=== PATIENT | female | born 1980 | race Caucasian/White ===

== ENCOUNTER 2017-09-01 20:13 | Emergency (ER) | payer OTHER ==
[2017-09-01 20:42] VITALS: BP 128/92
[2017-09-01] MEDS ORDERED: LIDOCAINE 5% (700 MG) TRANSDERMAL ADH..PATCH TP ONE (20:59)
[2017-09-01] MEDS ORDERED: KETOROLAC TROMETHAMINE INJ/PF 30 MG/1 ML SDV IM ONE (20:59)
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
== END 2017-09-01 21:21 | disposition home or self-care (01) ==
LOC: ER 20:13
DX: M62.830 Muscle spasm of back (principal); R51 Headache; V89.2XXA Person injured in unspecified motor-vehicle accident, traffic, initial encounter
CPT/HCPCS: 99283; 96372; J1885

== ENCOUNTER 2018-03-20 17:10 | Emergency (ER) | payer SELFPAY ==
--- NOTE | 2018-03-20 18:44 | RADIOLOGY REPORT (SQ) ---
EXAM DESCRIPTION: CHEST 2 VIEWS COMPLETED DATE/TIME: 03/20/2018 6:27 pm REASON FOR STUDY: chest wall pain COMPARISON: None. EXAM PARAMETERS: NUMBER OF VIEWS: two views TECHNIQUE: Digital Frontal and Lateral radiographic views of the chest acquired. RADIATION DOSE: NA LIMITATIONS: none FINDINGS: LUNGS AND PLEURA: No opacities, masses or pneumothorax. No pleural effusion. MEDIASTINUM AND HILAR STRUCTURES: No masses or contour abnormalities. HEART AND VASCULAR STRUCTURES: Heart normal size. No evidence for failure. BONES: No acute findings. HARDWARE: None in the chest. OTHER: No other significant finding. IMPRESSION: NO ACUTE RADIOGRAPHIC FINDING IN THE CHEST. TECHNICAL DOCUMENTATION: JOB ID: [id number] [employer]- All Rights Reserved Reading location - IP/workstation name: [email or web address]
--- NOTE | 2018-03-20 19:44 | ER Document Report ---
ED General - General Chief Complaint: Chest Pain Stated Complaint: CHEST PAIN Time Seen by Provider: 03/20/18 18:02 TRAVEL OUTSIDE OF THE [place] IN LAST 30 DAYS: No - HPI Patient complains to provider of: Chest wall sensitivity Notes: Patient coming in with chest wall pain states diffuse chest wall pain left and right very sensitive to light touch and clothing ongoing for approximately 2-3 days. Patient denies shortness of breath fevers chills nausea vomiting diarrhea. Patient states she did have chickenpox when she was younger patient states pain is achy but very hypersensitive patient states currently wearing her shirt and her bra is increasing her pain. Patient is unaware of any rashes that have developed on her torso. Patient otherwise denies any other concerning medical issues - Related Data Allergies/Adverse Reactions: No Known Allergies Allergy (Verified 03/20/18 17:57) Past Medical History - Social History Smoking Status: Current Every Day Smoker Chew tobacco use (# tins/day): No Frequency of alcohol use: Occasional Family History: Reviewed & Not Pertinent Patient has suicidal ideation: No Patient has homicidal ideation: No Renal/ Medical History: Denies: Hx Peritoneal Dialysis Past Surgical History: Reports: Hx Section - x 4, Hx Orthopedic Surgery - ankle Review of Systems - Review of Systems Constitutional: No symptoms reported EENT: No symptoms reported Cardiovascular: Chest pain Respiratory: No symptoms reported Gastrointestinal: No symptoms reported Genitourinary: No symptoms reported Female Genitourinary: No symptoms reported Musculoskeletal: No symptoms reported Skin: No symptoms reported Hematologic/Lymphatic: No symptoms reported Neurological/Psychological: No symptoms reported -: Yes All other systems reviewed and negative Physical Exam - Vital signs Vitals: Temp Pulse Resp BP Pulse Ox 98.9 F 68 16 130/86 H 98 03/20/18 17:31 03/20/18 17:31 03/20/18 17:31 03/20/18 17:31 03/20/18 17:31 Interpretation: Normal - General General appearance: Appears well, Alert - HEENT Head: Normocephalic, Atraumatic Eyes: Normal Pupils: PERRL - Respiratory Respiratory status: No respiratory distress Chest status: Tender - Tenderness to the chest wall anterior posterior left and right reproduces patient's pain examination of the posterior chest wall on back right side does reveal some development of more severe rash is erythematous at this painful to touch to the site there is no signs of vesicular lesions the rash is blanchable sandpaper feeling to touch Breath sounds: Normal Chest palpation: Normal - Cardiovascular Rhythm: Regular Heart sounds: Normal auscultation Murmur: No - Abdominal Inspection: Normal Distension: No distension Bowel sounds: Normal Tenderness: Nontender Organomegaly: No organomegaly - Back Back: Normal, Nontender - Extremities General upper extremity: Normal inspection, Nontender, Normal color, Normal ROM , Normal temperature General lower extremity: Normal inspection, Nontender, Normal color, Normal ROM , Normal temperature, Normal weight bearing. No: Ruth's sign - Neurological Neuro grossly intact: Yes Cognition: Normal Orientation: AAOx4 [place] Coma Scale Eye Opening: Spontaneous [place] Coma Scale Verbal: Oriented [place] Coma Scale Motor: Obeys Commands [place] Coma Scale Total: 15 Speech: Normal Motor strength normal: LUE, RUE, LLE, RLE Sensory: Normal - Psychological Associated symptoms: Normal affect, Normal mood - Skin Skin Temperature: Warm Skin Moisture: Dry Skin Color: Normal Course - Re-evaluation Re-evalutation: 03/20/18 20:52 Examination does not reveal vesicular rash diagnostic of shingles however because of the patient's pain distribution and concern for this will give the patient watch and wait prescription for acyclovir and prednisone. Patient also could be experiencing muscle skeletal chest wall pain. EKG chest x-ray did not reveal any significant pathology noted the patient's physical examination revealing significant pathology for her pain. Reviewed at length both of these etiologies recommend Tylenol Motrin currently for underlying muscle skeletal watch and wait prescription for prednisone and acyclovir. Patient is understanding will be discharged home. - Vital Signs Vital signs: Temp Pulse Resp BP Pulse Ox 98.9 F 68 16 130/86 H 98 03/20/18 17:31 03/20/18 17:31 03/20/18 17:31 03/20/18 17:31 03/20/18 17:31 Discharge - Discharge Clinical Impression: Chest wall pain Condition: Good Instructions: Chest Wall Pain ([facility]), Anti-Inflammatory Medication ([facility]), Shingles ([facility]), Family Physicians / Practices Additional Instructions: Your EKG today does not show any signs of cardiac ischemia cardiac damage. Your chest x-rays not showing signs of fracture or infection consistent with pneumonia. Your physical examination does reveal the chest wall is very tender he did have the development a little bit of a rash on the right side of your back. With your description of her pain would be concerned that she may be developing shingles. Diagnosed shingles based on the rash itself. At this time we do not have the diagnostic rash however this can develop over a amount of time. Please continue to monitor the area for the next 3-4 days for a blistering rash. If this does develop this is more likely shingles please take the acyclovir prednisone as prescribed. Other etiology for your pains could be muscle skeletal inflammation basically the cartilage and soft tissues within the chest wall or inflamed. We treat this with anti-inflammatory medication he may also take the Ultram for pain. Please return to the ER if you develop fever or worsening of symptoms Please take Motrin 600 mg along with Tylenol 650-1000 mg 3 times a day Please take the acyclovir if a rash develops that is blistering Please take the prednisone if a rash develops that is blistering Please take the Ultram as needed for severe pain Prescriptions: Acyclovir [Acyclovir 400 mg Tablet] 400 mg PO 5XD 7 Days tablet Ibuprofen [Motrin 600 Mg Tablet] 600 mg PO TID #30 tablet Prednisone [Deltasone 20 mg Tablet] 3 tab PO DAILY 5 Days tablet Tramadol HCl [Ultram 50 mg Tablet] 50 mg PO ASDIR PRN #20 tablet PRN Reason: Forms: Smoking Cessation Education, Return to Work
[2018-03-20 19:54] VITALS: BP 129/77
--- NOTE | 2018-03-20 21:12 | EKG REPORT ---
SEVERITY:- NORMAL ECG - SINUS RHYTHM : Confirmed by: Toby Mirza MD 20-Mar-2018 21:11:21
== END 2018-03-20 19:50 | disposition home or self-care (01) ==
LOC: ER 17:10
DX: R07.9 Chest pain, unspecified (principal); F17.200 Nicotine dependence, unspecified, uncomplicated
CPT/HCPCS: 71046; 93005; 93010; 99285

== ENCOUNTER 2018-05-08 13:47 | Emergency (ER) | payer SELFPAY ==
[2018-05-08 14:01] VITALS: BP 112/69
[2018-05-08] MEDS ORDERED: KETOROLAC TROMETHAMINE INJ/PF 30 MG/1 ML SDV IV ONE (14:16)
[2018-05-08] MEDS ORDERED: DEXAMETHASONE SOD PHOS INJ 10 MG/1 ML VIAL IM ONE (14:16)
[2018-05-08] MEDS ORDERED: LIDOCAINE 5% (700 MG) TRANSDERMAL ADH..PATCH TP ONE (14:17)
--- NOTE | 2018-05-08 14:21 | ER Document Report ---
ED Neck/Back Problem - General Chief Complaint: Low Back Pain Stated Complaint: BACK/LEG PAIN Time Seen by Provider: 05/08/18 14:06 Mode of Arrival: Ambulatory Information source: Patient Notes: 37-year-old female presents to low back pain radiating to both buttocks. She denies any loss of control of bowel bladder or loss of sensation. Patient is alert and oriented respirations regular and unlabored speaking in full sentences and is able to walk with a even steady gait. TRAVEL OUTSIDE OF THE [place] IN LAST 30 DAYS: No - HPI Patient complains to provider of: Lower back Onset: Last week Where: Work Onset: Gradual Timing: Still present Quality of pain: Achy, Dull, Sharp Severity: Severe Pain Level: 5 Context: Lifting Recent injury: Possibly Associated symptoms: Like prior neck/back pain, Radiation to leg, Sensory loss, Lower back pain Relieved by: Nothing Similar symptoms previously: Yes Recently seen / treated by doctor: No - Related Data Allergies/Adverse Reactions: No Known Allergies Allergy (Verified 05/08/18 13:54) Past Medical History - General Information source: Patient - Social History Smoking Status: Current Every Day Smoker Cigarette use (# per day): Yes - Half pack per day Smoking Education Provided: Yes - 4 minutes Frequency of alcohol use: Social Drug Abuse: None Lives with: Alone Family History: Reviewed & Not Pertinent Patient has suicidal ideation: No Patient has homicidal ideation: No - Past Medical History Cardiac Medical History: Reports: None Pulmonary Medical History: Reports: None EENT Medical History: Reports: None Neurological Medical History: Reports: None Endocrine Medical History: Reports: None Renal/ Medical History: Reports: None Malignancy Medical History: Reports: None GI Medical History: Reports: None Musculoskeletal Medical History: Reports Hx Musculoskeletal Deformity, Reports Hx Musculoskeletal Trauma Skin Medical History: Reports None Psychiatric Medical History: Reports: None Traumatic Medical History: Reports: None Infectious Medical History: Reports: None Past Surgical History: Reports: Hx Section - x 4, Hx Orthopedic Surgery - ankle - Immunizations Immunizations up to date: Yes Review of Systems - Review of Systems Constitutional: No symptoms reported EENT: No symptoms reported Cardiovascular: No symptoms reported Respiratory: No symptoms reported Gastrointestinal: No symptoms reported Genitourinary: No symptoms reported Female Genitourinary: No symptoms reported Musculoskeletal: Back pain - Radiates down the both legs, Muscle pain, Muscle stiffness Skin: No symptoms reported Hematologic/Lymphatic: No symptoms reported Neurological/Psychological: No symptoms reported. denies: Hallucinations, Sensory change, Weakness, Gait changes, Loss of power, Lost consciousness, Speech impairment, Numbness, Tingling, Tremor -: Yes All other systems reviewed and negative Physical Exam - Vital signs Vitals: Temp Pulse Resp BP Pulse Ox 97.7 F 60 16 112/69 100 05/08/18 13:59 05/08/18 13:59 05/08/18 13:59 05/08/18 13:59 05/08/18 13:59 Interpretation: Normal - General General appearance: Appears well, Alert - HEENT Head: Normocephalic, Atraumatic Eyes: Normal Pupils: PERRL - Respiratory Respiratory status: No respiratory distress Chest status: Nontender Breath sounds: Normal Chest palpation: Normal - Cardiovascular Rhythm: Regular Heart sounds: Normal auscultation Murmur: No - Abdominal Inspection: Normal Distension: No distension Bowel sounds: Normal Tenderness: Nontender Organomegaly: No organomegaly - Back Back: Normal, Tender. No: Deformity/step-off, CVA tenderness, Scars, Scoliosis , Wounds - Extremities General upper extremity: Normal inspection, Nontender, Normal color, Normal ROM , Normal temperature General lower extremity: Normal inspection, Nontender, Normal color, Normal ROM , Normal temperature, Normal weight bearing. No: Ruth's sign - Neurological Neuro grossly intact: Yes Cognition: Normal Orientation: AAOx4 [place] Coma Scale Eye Opening: Spontaneous [place] Coma Scale Verbal: Oriented [place] Coma Scale Motor: Obeys Commands [place] Coma Scale Total: 15 Speech: Normal Motor strength normal: LUE, RUE, LLE, RLE Sensory: Normal - Psychological Associated symptoms: Normal affect, Normal mood - Skin Skin Temperature: Warm Skin Moisture: Dry Skin Color: Normal Course - Re-evaluation Re-evalutation: 05/08/18 15:50 X-ray results discussed with patient and written report of x-rays given the patient. Next x-ray showed no acute changes. Patient has been treated with Toradol and steroids IM and Lidoderm patch. Patient will be discharged home with the prescription for ibuprofen and Flexeril instructions to follow-up with primary doctor and back specialist. After performing a Medical Screening Examination, I estimate there is LOW risk for EXPANDING OR RUPTURED ABDOMINAL AORTIC ANEURYSM, CAUDA EQUINA SYNDROME, EPIDURAL MASS LESION, or HERNIATED DISK CAUSING SEVERE SPINAL STENOSIS, thus I consider the discharge disposition reasonable. I have reevaluated this patient multiple times and no significant life threatening changes are noted. The patient and I have discussed the diagnosis and risks, and we agree with discharging home and close follow-up. We also discussed returning to the Emergency Department immediately if new or worsening symptoms occur with the understanding that symptoms and presentations can change. We have discussed the symptoms which are most concerning (e.g., saddle anesthesia, urinary or bowel incontinence or retention, changing or worsening pain) that necessitate immediate return. - Vital Signs Vital signs: Temp Pulse Resp BP Pulse Ox 97.7 F 60 16 112/69 100 05/08/18 13:59 05/08/18 13:59 05/08/18 13:59 05/08/18 13:59 05/08/18 13:59 - Diagnostic Test Radiology reviewed: Image reviewed, Reports reviewed Discharge - Discharge Clinical Impression: Low back pain Qualifiers: Chronicity: acute Back pain laterality: bilateral Sciatica presence: with sciatica Sciatica laterality: bilateral sciatica Qualified Code(s): M54.42 - Lumbago with sciatica, left side Condition: Stable Disposition: HOME, SELF-CARE Instructions: Family Physicians / Practices Additional Instructions: LOW BACK PAIN: Three out of every four people will have an episode of disabling back pain during their lifetime. Most commonly the pain is due to straining of the muscles and ligaments in the low back. Usual treatment includes: (1) Rest on a firm surface. Avoid lying on your stomach. (2) Ice pack the painful area. After a few days, gentle heat may be used intermittently to relax the area, or ice packs can be continued. (3) Medication may be needed -- muscle relaxers and antiinflammatory medicines are commonly used. (4) As the back improves, exercises are prescribed to strengthen the back and abdominal muscles. Your doctor will advise you on the proper care for your back at each stage in your recovery. You may be better in a few days -- or healing may take several weeks. If new symptoms of a "herniated disc" (radiation of pain, numbness, or tingling down the back of the leg or weakness in the leg) occur, you should be re-examined. Further testing may be necessary. Toradol Injection You have been given an injection of ketorolac tromethamine (Toradol). This is an excellent, safe drug for pain control. It also has potent antiinflammatory action. You should have significant pain relief within about one hour. Toradol is not addicting and is non-sedating. It does not interfere with driving or work. Call or return if you develop itching, hives, shortness of breath, or rash. STEROID MEDICATION: You have been given an injection of medicine of the cortisone/steroid class. This medication is used to control inflammation or allergy. It is often continued as a pill for a short period of time, until the acute process subsides. There are usually no side effects from short-term use of cortisone-like medications. Some persons feel an increased sense of well-being and are not sleepy at bedtime. Long-term use of cortisone medications is best avoided, unless required for a severe condition. If your condition does not remit, or relapses after the course of corticosteroid medication, you should consult your physician. Stretching Exercises for the Back The physician has recommended that you begin stretching exercises for your back. These are often used even while the back is painful. However, you should notify the physician if the activities seem to increase your pain. PELVIC TILT: Lie flat on your back with knees bent. Tighten your stomach and buttock muscles so it flattens your lower back against the floor. Hold 10 seconds. Repeat 10 times, twice daily. KNEE RAISE: Lying on the back with knees bent, raise one knee to your chest, then the other. Hold both knees against the chest 10 seconds, then lower one knee at a time. Repeat 10 times, twice daily. PARTIAL TRUNK RAISE: Lie face down, arms at your sides. Keeping your waist on the floor, use your arms raise your chest up. Support yourself on your elbows for 30 seconds. Repeat twice daily, increasing the time to two minutes as you recover. MUSCLE RELAXERS: Muscle relaxing medications are usually prescribed for acute muscle spasm or injury to the neck and back. They are often combined with antiinflammatory pain medication for increased relief. You may stop the muscle relaxer when the pain and stiffness have improved. Start the medication again if spasms recur. Muscle relaxers may cause drowsiness, especially with the first dose. Do not operate machinery or drive while under the effects of the medication. Most muscle relaxers last up to 24 hours. Do not combine the medication with alcohol. ICE PACKS: Apply ice packs frequently against the painful area. Many different schedules are recommended, such as "20 minutes on, 20 minutes off" or "one hour ice, two hours rest." If you need to work, you may need to go longer between ice treatments. You should plan to have the area ice packed AT LEAST one fourth of the time. The ice should be applied over the wrap, tape, or splint, or over a layer of cloth -- not directly against the skin. Some ice bags have a built-in cloth and can be put directly on the skin. WARM PACKS: After approximately two days, apply gentle heat (such as a heating pad or hot water bottle) for about 20 to 30 minutes about every two hours -- at least four times daily. Warmth and elevation will help you make a more rapid recovery , and will ease the pain considerably. Do not use HOT heat, and never apply heat for longer than 30 minutes. The continuous heat can invisibly damage skin and muscles -- even when no burn is seen on the surface. Damaged muscles can make you MORE sore. A Lidoderm patch was applied while in the emergency room. You can get over-the- counter Lidoderm patches that are not quite as strong as the one that you have one might now. You can use Aspercreme lidocaine it has the same affect. FOLLOW-UP CARE: If you have been referred to a physician for follow-up care, call the physician s office for an appointment as you were instructed or within the next two days. If you experience worsening or a significant change in your symptoms, notify the physician immediately or return to the Emergency Department at any time for re-evaluation. 1 [facility] [address] [facility] Open 8:00 AM - 8:00 PM 2 [facility] [address] [place] Open 9:00 AM - 5:00 PM Prescriptions: Ibuprofen 600 mg PO Q6HP PRN #20 tablet PRN Reason: Cyclobenzaprine HCl [Flexeril 5 mg Tablet] 5 mg PO TID #15 tablet Forms: Smoking Cessation Education, Return to Work
--- NOTE | 2018-05-08 15:43 | RADIOLOGY REPORT (SQ) ---
EXAM DESCRIPTION: L SPINE WHOLE COMPLETED DATE/TIME: 05/08/2018 3:32 pm REASON FOR STUDY: low back pain with radiation to bilateral buttocks COMPARISON: None. NUMBER OF VIEWS: Five views including obliques. TECHNIQUE: AP, lateral, oblique, and sacral radiographic images acquired of the lumbar spine. LIMITATIONS: None. FINDINGS: MINERALIZATION: Normal. SEGMENTATION: Normal. No transitional anatomy. ALIGNMENT: Normal. VERTEBRAE: Maintained height. No fracture or worrisome bone lesion. DISCS: Preserved height. No significant osteophytes or end plate irregularity. POSTERIOR ELEMENTS: Pedicles and facets are intact. No pars defect or posterior arch defects. HARDWARE: None in the spine. PARASPINAL SOFT TISSUES: Normal. PELVIS: Intact as visualized. No fractures or worrisome bone lesions. SI joints intact. OTHER: No other significant finding. IMPRESSION: NORMAL 5 VIEW LUMBAR SPINE. TECHNICAL DOCUMENTATION: JOB ID: [id number] [employer]- All Rights Reserved Reading location - IP/workstation name: [email or web address]
== END 2018-05-08 16:11 | disposition home or self-care (01) ==
LOC: ER 13:47
DX: M54.42 Lumbago with sciatica, left side (principal); F17.210 Nicotine dependence, cigarettes, uncomplicated
CPT/HCPCS: 99406; 99283; 96372; 96374; 72110; J1885; J1100

== ENCOUNTER 2018-06-07 13:50 | Emergency (ER) | payer SELFPAY ==
[2018-06-07 13:58] VITALS: BP 116/78
[2018-06-07] MEDS ORDERED: DIPH/PERTUSS(ACELL)/TETANUS VAC/PF 0.5 ML SYR (>=10YO) IM ONE (14:21)
--- NOTE | 2018-06-07 14:22 | ER Document Report ---
ED Extremity Problem, Lower - General Chief Complaint: Foot Pain Stated Complaint: FOOT PAIN Time Seen by Provider: 06/07/18 14:16 Information source: Patient Notes: Chief complaint: Left foot chemical burn History of complain:( obtained from----patient) 37 years old female accidentally burned her left foot sustained 2 areas of burn week ago. Is healing well but has not completely healed therefore present to the ED. Slight erythema around it. No fever chills or other constitutional symptoms Onset: Sudden Duration: Week ago Severity: Mild Quality: Burning Context: As described above Exacerbating factor and relieving factors: REVIEW OF SYSTEMS: CONSTITUTIONAL : Denies fever, chills, or sweats. Denies recent illness. EENT: Denies eye, ear, throat, or mouth pain or symptoms. Denies nasal or sinus congestion or discharge. Denies throat, tongue, or mouth swelling or difficulty swallowing. CARDIOVASCULAR: Denies chest pain. Denies palpitations or racing or irregular heart beat. Denies ankle edema. RESPIRATORY: Denies cough, cold, or chest congestion. Denies shortness of breath, difficulty breathing, or wheezing. GASTROINTESTINAL: Denies distention. Denies nausea, vomiting, or diarrhea. Denies blood in vomitus, stools, or per rectum. Denies black, tarry stools. Denies constipation. GENITOURINARY: Denies difficulty urinating, painful urination, burning, frequency, blood in urine, or discharge. FEMALE GENITOURINARY: Denies vaginal bleeding, heavy or abnormal periods, irregular periods. Denies vaginal discharge or odor. MUSCULOSKELETAL: Denies back or neck pain or stiffness. Denies joint pain or swelling. SKIN: Denies rash, lesions or sores. HEMATOLOGIC : Denies easy bruising or bleeding. LYMPHATIC: Denies swollen, enlarged glands. NEUROLOGICAL: Denies confusion or altered mental status. Denies passing out or loss of consciousness. Denies dizziness or lightheadedness. Denies headache. Denies weakness or paralysis or loss of use of either side. Denies problems with gait or speech. Denies sensory loss, numbness, or tingling. Denies seizures. PSYCHIATRIC: Denies anxiety or stress. Denies depression, suicidal ideation, or homicidal ideation. ALL OTHER SYSTEMS REVIEWED AND NEGATIVE. PHYSICAL EXAMINATION: GENERAL: Well-appearing, well-nourished and in no acute distress. HEAD: Atraumatic, normocephalic. EYES: Pupils equal round and reactive to light, extraocular movements intact, conjunctiva are normal. ENT: Nares patent, oropharynx clear without exudates. Moist mucous membranes. NECK: Normal range of motion, supple without lymphadenopathy LUNGS: Breath sounds clear to auscultation bilaterally and equal. No wheezes rales or rhonchi. HEART: Regular rate and rhythm without murmurs ABDOMEN: Soft, nontender, nondistended abdomen. No guarding, no rebound. No masses appreciated. Examination of genitals-deferred Musculoskeletal: Normal range of motion, no pitting or edema. No cyanosis. NEUROLOGICAL: Cranial nerves grossly intact. Normal speech, normal gait. Normal sensory, motor exams PSYCH: Normal mood, normal affect. SKIN: Skin over the lateral side of the foot shows second-degree burn with ulceration of the base which is healing well. 1 of them has surrounding erythema and slight warmness. Dictation was performed using [email or web address] voice recognition software TRAVEL OUTSIDE OF THE [place] IN LAST 30 DAYS: No - HPI Notes: Dictated - Related Data Allergies/Adverse Reactions: No Known Allergies Allergy (Verified 06/07/18 13:50) Past Medical History - Social History Smoking Status: Current Every Day Smoker Frequency of alcohol use: None Drug Abuse: None Family History: Reviewed & Not Pertinent Patient has suicidal ideation: No Patient has homicidal ideation: No Renal/ Medical History: Denies: Hx Peritoneal Dialysis Musculoskeletal Medical History: Reports Hx Musculoskeletal Deformity, Reports Hx Musculoskeletal Trauma Past Surgical History: Reports: Hx Section - x 4, Hx Orthopedic Surgery - left ankle - Immunizations Immunizations up to date: Yes Review of Systems - Review of Systems Notes: Dictated Physical Exam - Vital signs Vitals: Temp Pulse Resp BP Pulse Ox 98.0 F 78 16 116/78 99 06/07/18 13:56 06/07/18 13:56 06/07/18 13:56 06/07/18 13:56 06/07/18 13:56 - Notes Notes: Dictated Course - Re-evaluation Re-evalutation: 06/07/18 14:21 Tetanus updated, and given antibiotic - Vital Signs Vital signs: Temp Pulse Resp BP Pulse Ox 98.0 F 78 16 116/78 99 06/07/18 13:56 06/07/18 13:56 06/07/18 13:56 06/07/18 13:56 06/07/18 13:56 Discharge - Discharge Clinical Impression: Chemical burn Ulcerated, foot Qualifiers: Laterality: left Non-pressure ulcer stage: with fat layer exposed Qualified Code(s): L97.522 - Non-pressure chronic ulcer of other part of left foot with fat layer exposed Condition: Fair Disposition: HOME, SELF-CARE Instructions: Raman ([facility]) Prescriptions: Cephalexin Monohydrate [Keflex 500 mg Capsule] 500 mg PO TID 7 Days capsule
== END 2018-06-07 14:28 | disposition home or self-care (01) ==
LOC: ER 13:50
DX: T25.422A Corrosion of unspecified degree of left foot, initial encounter (principal); L97.522 Non-pressure chronic ulcer of other part of left foot with fat layer exposed; M79.672 Pain in left foot; X08.8XXA Exposure to other specified smoke, fire and flames, initial encounter; F17.200 Nicotine dependence, unspecified, uncomplicated
CPT/HCPCS: 90471; 90715; 99283

== ENCOUNTER 2019-01-24 11:26 | Emergency (ER) | payer SELFPAY ==
--- NOTE | 2019-01-24 12:26 | ER Document Report ---
ED Medical Screen (RME) - General Chief Complaint: Chest Pain Stated Complaint: CHEST PAIN Time Seen by Provider: 01/24/19 12:24 Mode of Arrival: Ambulatory Information source: Patient Notes: 38-year-old female presented to ED for chest pain/heaviness. She states she does not have any shortness of breath but at times her heart feels like it is racing and pounding. She does not have any cardiac history. During her complete have her fracture to the left ankle surgery and . 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 She has no other heart risk factors. Patient is alert oriented respirations regular and unlabored speaking in full sentences walks with a even steady gait. I have greeted and performed a rapid initial assessment of this patient. A c omprehensive ED assessment and evaluation of the patient, analysis of test results and completion of medical decision making process will be conducted by an additional ED providers. TRAVEL OUTSIDE OF THE [place] IN LAST 30 DAYS: No - Related Data Allergies/Adverse Reactions: No Known Allergies Allergy (Verified 06/07/18 13:50) Past Medical History Renal/ Medical History: Denies: Hx Peritoneal Dialysis Musculoskeltal Medical History: Reports Hx Musculoskeletal Deformity, Reports Hx Musculoskeletal Trauma Past Surgical History: Reports: Hx Section - x 4, Hx Orthopedic Surgery - left ankle - Immunizations Immunizations up to date: Yes Physical Exam - Vital signs Vitals: Temp Pulse Resp BP Pulse Ox 97.8 F 56 L 16 144/86 H 100 01/24/19 11:39 01/24/19 11:39 01/24/19 11:39 01/24/19 11:39 01/24/19 11:39 Course - Vital Signs Vital signs: Temp Pulse Resp BP Pulse Ox 97.8 F 56 L 16 144/86 H 100 01/24/19 11:39 01/24/19 11:39 01/24/19 11:39 01/24/19 11:39 01/24/19 11:39
[2019-01-24 13:02] LABS: ABSOLUTE BASOPHILS # (AUTO) 0.1 10^3/uL (0.0-0.2); ABSOLUTE EOSINOPHILS # (AUTO) 0.2 10^3/uL (0.0-0.6); ABSOLUTE LYMPHOCYTES (AUTO) 1.6 10^3/uL (0.5-4.7); ABSOLUTE MONOCYTES (AUTO) 0.5 10^3/uL (0.1-1.4); ABSOLUTE NEUT (AUTO) 3.3 10^3/uL (1.7-8.2); HEMATOCRIT 34.5 % (36.0-47.0); LYMPHOCYTES % (AUTO) 28.7 % (13-45); MEAN CORPUSCULAR HEMOGLOBIN 22.8 pg (27.0-33.4); MEAN CORPUSCULAR HGB CONC 31.9 g/dL (32.0-36.0); MEAN CORPUSCULAR VOLUME 72 fl (80-97); PLATELET COUNT 237 10^3/uL (150-450); RED BLOOD COUNT 4.83 10^6/uL (3.72-5.28); RED CELL DISTRIBUTION WIDTH 19.5 % (11.5-14.0); SEGMENTED NEUTROPHILS % (AUTO) 58.3 % (42-78); TOTAL CELLS COUNTED % (AUTO) 100 %; WHITE BLOOD COUNT 5.6 10^3/uL (4.0-10.5)
[2019-01-24 13:16] LABS: APPEARANCE,URINE SLIGHTLY-CLOUDY; BILIRUBIN,URINE NEGATIVE (NEGATIVE); COLOR,URINE YELLOW; GLUCOSE, URINE NEGATIVE (NEGATIVE); KETONES,URINE NEGATIVE (NEGATIVE); LEUKOCYTE ESTERASE,URINE NEGATIVE (NEGATIVE); NITRITE,URINE NEGATIVE (NEGATIVE); PROTEIN,URINE NEGATIVE (NEGATIVE); URINE SPECIFIC GRAVITY 1.019; UROBILINOGEN,URINE NEGATIVE mg/dL (<2.0)
[2019-01-24 13:22] LABS: ALANINE AMINOTRANSFERASE 31 U/L (9-52); ALBUMIN 4.1 g/dL (3.5-5.0); ALKALINE PHOSPHATASE 68 U/L (38-126); ANION GAP 7 (5-19); ASPARTATE AMINO TRANSFERASE 26 U/L (14-36); BILIRUBIN,DIRECT 0.2 mg/dL (0.0-0.4); BILIRUBIN,TOTAL 0.4 mg/dL (0.2-1.3); BLOOD UREA NITROGEN 13 mg/dL (7-20); CALCIUM 9.6 mg/dL (8.4-10.2); CARBON DIOXIDE 27 mmol/L (22-30); CHLORIDE 104 mmol/L (98-107); GLUCOSE 126 mg/dL (75-110); LIPASE 56.9 U/L (23-300); POTASSIUM 3.9 mmol/L (3.6-5.0)
--- NOTE | 2019-01-24 13:25 | RADIOLOGY REPORT (SQ) ---
EXAM DESCRIPTION: CHEST 2 VIEWS COMPLETED DATE/TIME: 01/24/2019 12:33 pm REASON FOR STUDY: chest pain and heaviness COMPARISON: 03/20/2018 EXAM PARAMETERS: NUMBER OF VIEWS: two views TECHNIQUE: Digital Frontal and Lateral radiographic views of the chest acquired. RADIATION DOSE: NA LIMITATIONS: none FINDINGS: LUNGS AND PLEURA: No opacities, masses or pneumothorax. No pleural effusion. MEDIASTINUM AND HILAR STRUCTURES: No masses or contour abnormalities. HEART AND VASCULAR STRUCTURES: Heart normal size. No evidence for failure. BONES: No acute findings. HARDWARE: None in the chest. OTHER: No other significant finding. IMPRESSION: No acute abnormality of the lungs. TECHNICAL DOCUMENTATION: JOB ID: [id number] [employer]- All Rights Reserved Reading location - IP/workstation name: [email or web address]
[2019-01-24 13:40] LABS: CREATINE KINASE MB 1.06 ng/mL (<4.55); TROPONIN I < 0.012 ng/mL
--- NOTE | 2019-01-24 14:29 | ER Document Report ---
ED General - General Chief Complaint: Chest Pain Stated Complaint: CHEST PAIN Time Seen by Provider: 01/24/19 12:24 Primary Care Provider: RICH JUAREZ MD [ACTIVE STAFF] - Follow up in 3-5 days (CARDIOLOGY ) Mode of Arrival: Ambulatory Notes: Patient is a 38 year old female that presents to the emergency department for chief complaint of palpitations and chest pressure. Patient is been having symptoms on and off for the past 4 days, she is noticed some more at rest, but not with exertion. Denies any associated shortness of breath, nausea, vomiting or diaphoresis. She describes as a heaviness, in the middle of the chest, she denies having any pain at this time. She does admit to smoking, but denies history of hypertension, diabetes mellitus, hyperlipidemia, or significant family history for early coronary disease. Denies any recent travel, or any leg swelling or redness. Denies any recent surgeries. Past Medical History: Denies chronic medical conditions Past Surgical History: Social History: Admits to smoking, and occasional alcohol use, denies illicit drug use. Family History: Reviewed and noncontributory for presenting illness Allergies: Reviewed, see documented allergy list. REVIEW OF SYSTEMS: Other than noted above, the 12 point review of systems was reviewed with the patient and were negative, all pertinent findings are included in the HPI. PHYSICAL EXAMINATION: Vital signs reviewed, nursing noted reviewed. GENERAL: Well-appearing, well-nourished and in no acute distress. HEAD: Atraumatic, normocephalic. EYES: Eyes appear normal, extraocular movements intact, sclera anicteric, conjunctiva are normal. ENT: nares patent, oropharynx clear without exudates. Moist mucous membranes. NECK: Normal range of motion, supple without lymphadenopathy LUNGS: Breath sounds clear to auscultation bilaterally and equal. No wheezes rales or rhonchi. HEART: Regular rate and rhythm without murmurs ABDOMEN: Soft, nontender, normoactive bowel sounds. No rebound, guarding, or rigidity. No masses appreciated. EXTREMITIES: Nontender, good range of motion, no pitting or edema. NEUROLOGICAL: No focal neurological deficits. Moves all extremities spontaneously Motor and sensory grossly intact on exam. PSYCH: Normal mood, normal affect. SKIN: Warm, Dry, normal turgor, no rashes or lesions noted on exposed skin TRAVEL OUTSIDE OF THE [place] IN LAST 30 DAYS: No - Related Data Allergies/Adverse Reactions: No Known Allergies Allergy (Verified 06/07/18 13:50) Past Medical History - General Information source: Patient - Social History Smoking Status: Current Every Day Smoker Family History: Reviewed & Not Pertinent Patient has suicidal ideation: No Patient has homicidal ideation: No Renal/ Medical History: Denies: Hx Peritoneal Dialysis Musculoskeletal Medical History: Reports Hx Musculoskeletal Deformity, Reports Hx Musculoskeletal Trauma Past Surgical History: Reports: Hx Section - x 4, Hx Orthopedic Surgery - left ankle - Immunizations Immunizations up to date: Yes Physical Exam - Vital signs Vitals: Temp Pulse Resp BP Pulse Ox 97.8 F 56 L 16 144/86 H 100 01/24/19 11:39 01/24/19 11:39 01/24/19 11:39 01/24/19 11:39 01/24/19 11:39 Course - Re-evaluation Re-evalutation: Presentation of chest pain in an otherwise well appearing patient. Low clinical suspicion for ACS given clinical history, exam, EKG without ST elevations or depressions, and negative initial troponin. HEART score less than or equal to 3. PE also seems unlikely given clinical history, absence of tachycardia or dyspne a. Patient is PERC criteria negative. CXR without evidence of pneumothorax or pneumonia. No widened mediastinum. Aortic dissection also seems unlikely given history, symmetric pulses, CXR, and vitals. HEART Score: History ECG Age Risk Factors Troponin Total: 0 Chest pain in a patient without evidence of cardiac or other serious etiology on workup today. I discussed with patient that, based on their age, risk factors and emergency department testing today, the likelihood that their symptoms are related to a heart attack is very low (estimated risk of heart attack or over the next 30 days of less than 1%). The patient demonstrates decision making capacity and has verbalized an understanding of these risks to me. Based on this, the patient has chosen to follow-up as an outpatient. Usual chest pain return precautions reviewed. The patient states understanding and agreement with this plan. - Vital Signs Vital signs: Temp Pulse Resp BP Pulse Ox 97.8 F 59 L 16 115/71 100 01/24/19 11:39 01/24/19 14:11 01/24/19 14:01 01/24/19 14:01 01/24/19 14:01 - Laboratory Result Diagrams: 01/24/19 12:45 01/24/19 12:45 Laboratory results interpreted by me: 01/24/19 01/24/19 01/24/19 12:45 12:45 12:45 Hgb 11.0 L Hct 34.5 L MCV 72 L MCH 22.8 L MCHC 31.9 L RDW 19.5 H Glucose 126 H Urine Ascorbic Acid 40 H Discharge - Discharge Clinical Impression: Chest pain Qualifiers: Chest pain type: unspecified Qualified Code(s): R07.9 - Chest pain, unspecified Condition: Stable Disposition: HOME, SELF-CARE Instructions: Chest Pain of Unclear Cause ([facility]) Additional Instructions: Please follow-up with your family physician, and if you continue to have symptoms, please follow-up with cardiology as you may need a Holter monitor, or stress testing. Referrals: RICH JUAREZ MD [ACTIVE STAFF] - Follow up in 3-5 days (CARDIOLOGY )
[2019-01-24 14:42] VITALS: BP 128/80
--- NOTE | 2019-01-24 15:31 | EKG REPORT ---
SEVERITY:- OTHERWISE NORMAL ECG - SINUS ARRHYTHMIA, RATE 46-66 : Confirmed by: Nina Shipman MD 24-Jan-2019 15:31:21
== END 2019-01-24 14:42 | disposition home or self-care (01) ==
LOC: ER 11:26
DX: R07.9 Chest pain, unspecified (principal); R00.2 Palpitations; F17.200 Nicotine dependence, unspecified, uncomplicated
CPT/HCPCS: 36415; 71046; 80053; 81001; 82553; 83690; 84484; 84703; 85025; 93005; 93010; 99285

== ENCOUNTER 2020-02-01 02:45 | Emergency (ER) | payer SELFPAY ==
[2020-02-01] MEDS ORDERED: ACETAMINOPHEN 325 MG TABLET PO ONE (04:29)
[2020-02-01] MEDS ORDERED: KETOROLAC TROMETHAMINE INJ/PF 30 MG/1 ML SDV IM ONE (04:29)
[2020-02-01] MEDS ORDERED: LIDOCAINE 5% (700 MG) TRANSDERMAL ADH..PATCH TP ONE (04:29)
--- NOTE | 2020-02-01 04:37 | ER Document Report ---
HPI - HPI Patient complains to provider of: back pain Time Seen by Provider: 02/01/20 04:15 Pain Level: 4 Context: 39-year-old generally healthy female presents the emergency department with low back pain for the past 2 to 3 days. Patient states that she has significant right-sided back pain in her buttock that travels down the back of her leg. Patient states that it is affecting her work and she cannot sleep. No urinary retention, no bowel incontinence, no saddle paresthesia, no IV drug use, no fevers. Patient is able to ambulate. Patient has not had this issue before but has had back pain in the past. No other complaints - CONSTITUTIONAL Constitutional: DENIES: Fever, Chills - URINARY Urinary: DENIES: Dysuria - REPRODUCTIVE Reproductive: DENIES: : Past Medical History - Social History Smoking Status: Current Every Day Smoker Frequency of alcohol use: Occasional Drug Abuse: None Family History: Reviewed & Not Pertinent Patient has suicidal ideation: No Patient has homicidal ideation: No Renal/ Medical History: Denies: Hx Peritoneal Dialysis Musculoskeletal Medical History: Reports Hx Musculoskeletal Deformity, Reports Hx Musculoskeletal Trauma Past Surgical History: Reports: Hx Section - x 4, Hx Orthopedic Surgery - left ankle - Immunizations Immunizations up to date: Yes Vertical Provider Document - CONSTITUTIONAL Notes: PHYSICAL EXAMINATION: Reviewed vital signs and charting by RN GENERAL: Alert, interacts well. No acute distress. HEAD: Normocephalic, atraumatic. EYES: Pupils equal and round. Extraocular movements intact. ENT: Oral mucosa moist, tongue midline. NECK: Full range of motion. Trachea midline. LUNGS: Clear to auscultation bilaterally, no wheezes, rales, or rhonchi. No respiratory distress. HEART: Regular rate and rhythm. No murmur ABDOMEN: soft, non-tender. No distention. Bowel sounds present EXTREMITIES: Moves all 4 extremities spontaneously. No edema, No cyanosis. NEURO: Intact sensation lower leg, including nl sensation to light touch inner thigh, distal legs, foot, perineal/perianal sensation; Sensation inner upper thigh normal, 5/5 strength adduction thigh, flex/extension knee, foot dorsiflexion/extension, toe extension/curling toes. 2+ patellar reflexes sara, PSYCH: Normal affect, normal mood. SKIN: Warm, dry, normal turgor. No rashes or lesions noted. - INFECTION CONTROL TRAVEL OUTSIDE OF THE [place] IN LAST 30 DAYS: No Course - Re-evaluation Re-evalutation: 02/01/20 04:35 Presentation of a well appearing patient complaining of acute on chronic back pain. No rapid progression of symptoms, systemic symptoms including fevers, chills, weight loss, history of recent bacterial infection, bilateral symptoms, numbness, weakness, difficulty walking, urinary retention or bowel incontinence, personal history of cancer, immunosuppression, diabetes, known AAA, or history of IV drug use. Exam is without point tenderness over vertebral bodies, pulsatile abdominal mass, and patient has symmetric and intact lower extremity strength, sensation, and reflexes without clonus. 2+ symmetric medial malleolar and dorsalis pedis pulses Based on history and physical, I have a very low suspicion of a concerning etiology of pain including epidural compression syndrome, spinal infection, transverse myelitis, malignancy, abdominal aortic aneurysm, renal colic, acute lower extremity claudication, neurogenic claudication, ankylosing spondylitis, or other intra-abdominal process. Due to absence of concerning risk factors in history and physical as well as absence of rapidly progressive, severe, or bilateral symptoms, will defer imaging at this point. - Vital Signs Vital signs: Temp Pulse Resp BP Pulse Ox 98.9 F 82 18 133/98 H 100 02/01/20 03:15 02/01/20 03:05 02/01/20 03:05 02/01/20 03:05 02/01/20 03:05 Discharge - Discharge Clinical Impression: Low back pain Qualifiers: Chronicity: acute Back pain laterality: right Sciatica presence: with sciatica Sciatica laterality: sciatica of right side Qualified Code(s): M54.41 - Lumbago with sciatica, right side Condition: Good Disposition: HOME, SELF-CARE Additional Instructions: You have been seen in the Emergency Department (ED) today for back pain. Your workup and exam have not shown any acute abnormalities and you are likely suffering from muscle strain or possible problems with your discs, but there is no treatment that will fix your symptoms at this time. Please take Motrin 600 mg every 6 hours and/or Tylenol every 6 hours for pain/inflammation. You should also purchase a local lidocaine cream such as "aspercreme with lidocaine" and use per bottle instructions to the affected area. Apply heat to the area as often as you are able. Continue to keep active and avoid prolonged periods of bed rest. Please follow up with your doctor as soon as possible regarding today's ED visit and your back pain. Return to the ED for worsening back pain, fever, weakness or numbness of either leg, or if you develop either (1) an inability to urinate or have bowel movements, or (2) loss of your ability to control your bathroom functions (if you start having "accidents"), or if you develop other new symptoms that concern you.concern you. Referrals: ARTIE CHIU MD [Primary Care Provider] - Follow up as needed
[2020-02-01 05:04] VITALS: BP 137/85
== END 2020-02-01 04:55 | disposition home or self-care (01) ==
LOC: ER 02:45
DX: M54.41 Lumbago with sciatica, right side (principal); F17.200 Nicotine dependence, unspecified, uncomplicated
CPT/HCPCS: 99283; 96372; J1885

== ENCOUNTER 2020-03-12 09:35 | Emergency (ER) | payer SELFPAY ==
[2020-03-12 09:40] VITALS: BP 150/90
[2020-03-12 11:22] LABS: APPEARANCE,URINE SLIGHTLY-CLOUDY; BILIRUBIN,URINE NEGATIVE (NEGATIVE); COLOR,URINE YELLOW; GLUCOSE, URINE NEGATIVE (NEGATIVE); KETONES,URINE NEGATIVE (NEGATIVE); LEUKOCYTE ESTERASE,URINE NEGATIVE (NEGATIVE); NITRITE,URINE NEGATIVE (NEGATIVE); PROTEIN,URINE 30 mg/dL (NEGATIVE); URINE SPECIFIC GRAVITY 1.028; UROBILINOGEN,URINE NEGATIVE mg/dL (<2.0)
[2020-03-12] MEDS ORDERED: CARISOPRODOL 350 MG TABLET PO ONE ×2 (11:59→12:15)
--- NOTE | 2020-03-12 12:39 | RADIOLOGY REPORT (SQ) ---
EXAM DESCRIPTION: CT ABD/PELVIS NO ORAL OR IV IMAGES COMPLETED DATE/TIME: 03/12/2020 12:23 pm REASON FOR STUDY: flank pain, hematuria COMPARISON: None. TECHNIQUE: CT scan of the abdomen and pelvis performed without intravenous or oral contrast. Images reviewed with lung, soft tissue, and bone windows. Reconstructed coronal and sagittal MPR images revi ewed. All images stored on PACS. All CT scanners at this facility use dose modulation, iterative reconstruction, and/or weight based d osing when appropriate to reduce radiation dose to as low as reasonably achievable (ALARA). [facility]: Dose Right [facility]: CareDose [facility]: Dose Right [facility]: Teradose 4D [facility]: [employer] RADIATION DOSE: CT Rad equipment meets quality standard of care and radiation dose reduction techniq ues were employed. CTDIvol: 4.8 mGy. DLP: 239 mGy-cm.mGy. LIMITATIONS: None. FINDINGS: LOWER CHEST: No significant findings. No nodules or infiltrates. NON-CONTRASTED LIVER, SPLEEN, ADRENALS: Evaluation limited by lack of IV contrast. No identified sign ificant masses. PANCREAS: No masses. No peripancreatic inflammatory changes. GALLBLADDER: No identified stones by CT criteria. No inflammatory changes to suggest cholecystitis. RIGHT KIDNEY AND URETER: No suspicious masses. Assessment limited by lack of IV contrast. No signif icant calcifications. No hydronephrosis or hydroureter. LEFT KIDNEY AND URETER: No suspicious masses. Assessment limited by lack of IV contrast. 2 mm stone lower pole. No hydronephrosis or hydroureter. AORTA AND RETROPERITONEUM: No aneurysm. No retroperitoneal masses or adenopathy. BOWEL AND PERITONEAL CAVITY: No obvious masses or inflammatory changes. No free fluid. APPENDIX: Normal. PELVIS, BLADDER, AND ABDOMINAL WALL:No abnormal masses. No free fluid. Bladder normal. BONES: No significant findings. OTHER: No other significant finding. IMPRESSION: Nonobstructing small left renal calculus. COMMENT: Quality ID # [id number]: Final reports with documentation of one or more dose reduction techniques (e.g., Automated exposure control, adjustment of the mA and/or kV according to patient size, use of iterative reconstruction technique) TECHNICAL DOCUMENTATION: JOB ID: [id number] 2010 [employer]- All Rights Reserved Reading location - IP/workstation name: [email or web address]
[2020-03-12] MEDS ORDERED: LIDOCAINE 5% (700 MG) TRANSDERMAL ADH..PATCH TP ONE (13:17)
--- NOTE | 2020-03-12 19:20 | ER Document Report ---
Entered by PAMELA HUMPHREY SCRIBE 03/12/20 1131 Acting as scribe for:TARA WILLIAMSON DO ED Neck/Back Problem - General Chief Complaint: Low Back Pain Stated Complaint: LOW BACK PAIN,RIGHT LEG PAIN Primary Care Provider: ARTIE CHIU MD [Primary Care Provider] - Follow up as needed Mode of Arrival: Ambulatory Information source: Patient Notes: This 39-year-old female patient presents to the emergency department today with complaints of right low back pain. Patient was seen here on 02/01/2020 when her back pain first began. Patient states she was diagnosed with sciatica at that time and was referred to her primary care doctor. Patient states she has gone to the chiropractor and has tried to get into pain management but has been unsuccessful so far. Patient states "when I wake up it feels like my legs are breaking but I know they are not". Patient denies any hematuria or dysuria. TRAVEL OUTSIDE OF THE [place] IN LAST 30 DAYS: No - Related Data Allergies/Adverse Reactions: No Known Allergies Allergy (Verified 02/01/20 03:15) Home Medications: Alprazolam. Robaxin. Prednisone Past Medical History - General Information source: Patient - Social History Smoking Status: Current Every Day Smoker Cigarette use (# per day): Yes Frequency of alcohol use: Occasional Lives with: Family Family History: Reviewed & Not Pertinent Patient has homicidal ideation: No Musculoskeletal Medical History: Reports Hx Musculoskeletal Deformity, Reports Hx Musculoskeletal Trauma Past Surgical History: Reports: Hx Section - x 4, Hx Orthopedic Surgery - left ankle - Immunizations Immunizations up to date: Yes Review of Systems - Review of Systems Constitutional: No symptoms reported EENT: No symptoms reported Cardiovascular: No symptoms reported Respiratory: No symptoms reported Gastrointestinal: No symptoms reported Genitourinary: No symptoms reported Female Genitourinary: See HPI, - ?, Vaginal bleeding Musculoskeletal: No symptoms reported Skin: No symptoms reported Hematologic/Lymphatic: No symptoms reported Neurological/Psychological: No symptoms reported -: Yes All other systems reviewed and negative Physical Exam - Vital signs Vitals: Temp Pulse Resp BP 98.2 F 65 14 150/90 H 03/12/20 09:38 03/12/20 09:38 03/12/20 09:38 03/12/20 09:38 Interpretation: Normal - General General appearance: Appears well, Alert - HEENT Head: Normocephalic, Atraumatic Eyes: Normal Pupils: PERRL - Respiratory Respiratory status: No respiratory distress Chest status: Nontender Breath sounds: Normal Chest palpation: Normal - Cardiovascular Rhythm: Regular Heart sounds: Normal auscultation Murmur: No - Abdominal Inspection: Normal Distension: No distension Bowel sounds: Normal Tenderness: Nontender Organomegaly: No organomegaly - Back Back: Normal, Tender - Tender over right sacroiliac joint. Tender over right buttock. Full range of motion and strength 5 out of 5. Positive straight leg raise on right. - Extremities General upper extremity: Normal inspection, Nontender, Normal color, Normal ROM, Normal temperature General lower extremity: Normal inspection, Nontender, Normal color, Normal ROM, Normal temperature, Normal weight bearing. No: Ruth's sign - Neurological Neuro grossly intact: Yes Cognition: Normal Orientation: AAOx4 [place] Coma Scale Eye Opening: Spontaneous [place] Coma Scale Verbal: Oriented [place] Coma Scale Motor: Obeys Commands [place] Coma Scale Total: 15 Speech: Normal Motor strength normal: LUE, RUE, LLE, RLE Sensory: Normal - Psychological Associated symptoms: Normal affect, Normal mood - Skin Skin Temperature: Warm Skin Moisture: Dry Skin Color: Normal Course - Re-evaluation Re-evalutation: Patient comes in with right-sided back pain, radicular symptoms to her knee on the right and hematuria. CT with no evidence for obstructive stone at this time. No other evidence for bony lesions. Patient is neurovascularly intact with no evidence for emergent MRI or surgical intervention. States that she has medication at home to take as needed for pain. Will do Medrol Dosepak due to ra dicular symptoms. Follow-up with PMD and pain management as she is able to get into them. Otherwise no other concerns. Stable for discharge. Return if any worsening or concerning symptoms. Patient is able to ambulate. Understands and agrees with plan. - Vital Signs Vital signs: Temp Pulse Resp BP Pulse Ox 98.2 F 65 14 150/90 H 03/12/20 09:43 03/12/20 09:38 03/12/20 09:38 03/12/20 09:38 - Laboratory Laboratory results interpreted by me: 03/12/20 10:58 Urine Protein 30 H Urine Blood MODERATE H - Diagnostic Test Radiology reviewed: Reports reviewed Discharge - Discharge Clinical Impression: Radicular pain Back pain Qualifiers: Back pain location: low back pain Chronicity: unspecified Back pain laterality: right Sciatica presence: with sciatica Sciatica laterality: sciatica of right side Qualified Code(s): M54.41 - Lumbago with sciatica, right side Condition: Stable Disposition: HOME, SELF-CARE Instructions: Low Back Pain ([facility]), Radiculopathy ([facility]) Additional Instructions: Please follow-up with your primary care doctor and pain management as scheduled. Please take a copy of your CT report with you. Prescriptions: Methylprednisolone [Medrol Dosepack (4 mg/Tab) 21 Tab/Dosepak] 4 mg PO ASDIR PRN #[id number] PRN Reason: Referrals: ARTIE CHIU MD [Primary Care Provider] - Follow up as needed I personally performed the services described in the documentation, reviewed and edited the documentation which was dictated to the scribe in my presence, and it accurately records my words and actions.
== END 2020-03-12 14:55 | disposition home or self-care (01) ==
LOC: ER 09:35
DX: M54.41 Lumbago with sciatica, right side (principal); M54.10 Radiculopathy, site unspecified; N20.0 Calculus of kidney; R31.9 Hematuria, unspecified; N93.9 Abnormal uterine and vaginal bleeding, unspecified; F17.210 Nicotine dependence, cigarettes, uncomplicated; Z79.899 Other long term (current) drug therapy; Z79.52 Long term (current) use of systemic steroids
CPT/HCPCS: 99284; 81025; 81001; 74176; J3490

== ENCOUNTER 2020-03-30 07:46 | Inpatient (IN) | payer SELFPAY ==
[2020-03-30] MEDS ORDERED: CLINDAMYCIN 600 MG/D5W RTU 600 MG/50 ML RTUPB IV ONE (08:48)
[2020-03-30] MEDS ORDERED: KETOROLAC TROMETHAMINE INJ/PF 30 MG/1 ML SDV IV ONE (08:51)
--- NOTE | 2020-03-30 08:56 | ER Document Report ---
ED Skin Rash/Insect Bite/Abscs - General Chief Complaint: Abscess Stated Complaint: ABSCESS/POSSIBLE INSECT BITE Time Seen by Provider: 03/30/20 08:41 Notes: Patient is a 39-year-old female who presents emergency department with a chief complaint of left knee pain. Patient reports about 6 days ago she noticed a pimple right below her left kneecap. Patient reports since then it is become more red and swollen. Patient reports for the past 3 days it has been draining pus. Patient reports she did attempt to get in with her primary care physician but was told since she reported a fever of 102 at home she was told to come to the emergency department. Patient reports she has been using cold compresses to the site. Patient denies a history of diabetes or MRSA. TRAVEL OUTSIDE OF THE [place] IN LAST 30 DAYS: No - Related Data Allergies/Adverse Reactions: No Known Allergies Allergy (Verified 02/01/20 03:15) Home Medications: Xanax Past Medical History - General Information source: Patient - Social History Smoking Status: Current Every Day Smoker Chew tobacco use (# tins/day): No Frequency of alcohol use: Occasional Drug Abuse: None Lives with: Family Family History: Reviewed & Not Pertinent Patient has homicidal ideation: No - Past Medical History Cardiac Medical History: Reports: None Pulmonary Medical History: Reports: None EENT Medical History: Reports: None Neurological Medical History: Reports: None Endocrine Medical History: Reports: None Renal/ Medical History: Reports: None. Denies: Hx Peritoneal Dialysis Malignancy Medical History: Reports: None GI Medical History: Reports: None Musculoskeletal Medical History: Reports Hx Musculoskeletal Deformity, Reports Hx Musculoskeletal Trauma Skin Medical History: Reports None Psychiatric Medical History: Reports: None Traumatic Medical History: Reports: None Infectious Medical History: Reports: None Past Surgical History: Reports: Hx Section - x 4, Hx Orthopedic Surgery - left ankle - Immunizations Immunizations up to date: Yes Review of Systems - Review of Systems Constitutional: See HPI EENT: No symptoms reported Cardiovascular: No symptoms reported Respiratory: No symptoms reported Gastrointestinal: No symptoms reported Genitourinary: No symptoms reported Female Genitourinary: No symptoms reported Musculoskeletal: See HPI Skin: See HPI Hematologic/Lymphatic: No symptoms reported Neurological/Psychological: No symptoms reported Physical Exam - Vital signs Vitals: Temp Pulse Resp BP Pulse Ox 98.4 F 106 H 16 140/79 H 99 03/30/20 07:50 06/22/20 07:50 03/30/20 07:50 03/30/20 07:50 03/30/20 07:50 Interpretation: Tachycardic - Notes Notes: GENERAL: Well-appearing, well-nourished and in no acute distress. HEAD: Atraumatic, normocephalic. EYES: Pupils equal round and reactive to light, extraocular movements intact, sc kinza anicteric, conjunctiva are normal. ENT: Nares patent, oropharynx clear without exudates. Moist mucous membranes. NECK: Normal range of motion, supple without lymphadenopathy or JVD. LUNGS: Breath sounds clear to auscultation bilaterally and equal. No wheezes rales or rhonchi. HEART: Regular rate and rhythm without murmurs, rubs or gallops. ABDOMEN: Soft, nontender, normoactive bowel sounds. No guarding, no rebound. No masses appreciated. BACK: No cervical, thoracic, lumbar midline tenderness. No saddle anesthesia, normal distal neurovascular exam. GENITOURINARY: Deferred. EXTREMITIES: Anterior left knee erythematous, raised area that is firm, nonfluctuant inferior to the left patella, no current drainage. Streaking of erythematous skin noted to left medial thigh. Patient does limp when attempting to ambulate due to pain to the left knee joint. Patient has a +2 popliteal puls e with palpation. Patient is able to flex at the knee joint but limited extension she reports significant pain. NEUROLOGICAL: Cranial nerves II through XII grossly intact. Normal speech, limp on left leg. PSYCH: Normal mood, normal affect. SKIN: Warm, Dry, normal turgor, no rashes or lesions noted. Course - Re-evaluation Re-evalutation: 03/30/20 08:53 Patient reports a fever at home. Patient is slightly tachycardic with a heart rate of 106. Will obtain basic labs, will initiate IV antibiotics, start Toradol for pain, and obtain an x-ray due to limited range of motion of the left knee joint. Patient is afebrile at this time. At this time there is no abscess to be drained. 11:45 Dr. Myles was consulted, was able to evaluate the patient recommends obtaining a CT of the left knee to rule out infection or abscess. He does suggest consulting with the hospitalist for possible admission after results of CT. Recommends giving vancomycin. 03/30/20 15:02 Patient to be admitted by Dr. Garza. IV antibiotics had already been initiated. CT of the knee was negative. Patient updated on plan of care. Patient is in no acute distress. - Vital Signs Vital signs: Temp Pulse Resp BP Pulse Ox 98.4 F 106 H 19 140/79 H 98 03/30/20 07:50 03/30/20 07:50 03/30/20 14:02 03/30/20 07:50 03/30/20 14:02 - Laboratory Result Diagrams: 03/30/20 10:03 03/30/20 10:03 Laboratory results interpreted by me: 03/30/20 03/30/20 10:03 10:03 WBC 13.5 H Hgb 10.0 L Hct 32.7 L MCV 69 L MCH 21.1 L MCHC 30.4 L RDW 19.0 H Lymph % (Auto) 5.5 L Absolute Neuts (auto) 11.5 H Seg Neutrophils % 85.7 H Sodium 133.0 L Creatinine 0.48 L Laboratory 03/30/20 03/30/20 10:03 10:03 WBC 13.5 H RBC 4.72 Hgb 10.0 L Hct 32.7 L MCV 69 L MCH 21.1 L MCHC 30.4 L RDW 19.0 H Plt Count 228 Lymph % (Auto) 5.5 L Divide % (Auto) 7.7 Eos % (Auto) 0.5 Baso % (Auto) 0.6 Absolute Neuts (auto) 11.5 H Absolute Lymphs (auto) 0.7 Absolute Monos (auto) 1.0 Absolute Eos (auto) 0.1 Absolute Basos (auto) 0.1 Seg Neutrophils % 85.7 H Sodium 133.0 L Potassium 4.5 Chloride 104 Carbon Dioxide 24 Anion Gap 5 BUN 11 Creatinine 0.48 L Est GFR ( Amer) > 60 Est GFR (MDRD) Non-Af > 60 Glucose 87 Calcium 9.3 Patient is a slight leukocytosis of 13.5. Patient slightly anemic with a hemoglobin of 10 and a hematocrit of 32.7. Patient does not have a significant alteration in electrolytes. - Diagnostic Test Radiology reviewed: Reports reviewed Radiology results interpreted by me: 03/30/20 13:24 Knee X-Ray 03/30/20 08:47 IMPRESSION: 1. No acute osseous abnormality of the left knee. 2. Osseous excrescence that projects from the metaphysis of the proximal fibula could represent an osteochondroma. Lower Extremity CT 03/30/20 11:59 IMPRESSION: Pre-patella subcutaneous edema and dermal thickening without an associated osseous abnormality or a circumscribed subcutaneous fluid collection. Discharge - Discharge Clinical Impression: Left leg cellulitis Left knee pain Qualifiers: Chronicity: acute Qualified Code(s): M25.562 - Pain in left knee Condition: Stable Disposition: ADMITTED INPATIENT Admitting Provider: Kayla (Hospitalist) Unit Admitted: Medical Floor
--- NOTE | 2020-03-30 09:22 | RADIOLOGY REPORT (SQ) ---
EXAM DESCRIPTION: KNEE LEFT 4 VIEW IMAGES COMPLETED DATE/TIME: 03/30/2020 9:03 am REASON FOR STUDY: left knee abscess/cellulitis COMPARISON: None. NUMBER OF VIEWS: Four views. TECHNIQUE: AP, lateral, and both oblique radiographic images acquired of the left knee. LIMITATIONS: None. FINDINGS: MINERALIZATION: Normal. BONES: No acute fracture or dislocation. The osseous excrescence that projects from the metaphysis o f the proximal fibula could represent an osteochondroma. JOINT: No effusion. SOFT TISSUES: The quadriceps and patellar tendon silhouettes are intact. There is no prepatellar sof t tissue swelling. OTHER: No other finding. IMPRESSION: 1. No acute osseous abnormality of the left knee. 2. Osseous excrescence that projects from the metaphysis of the proximal fibula could represent an os teochondroma. TECHNICAL DOCUMENTATION: JOB ID: [id number] 2010 [employer]- All Rights Reserved Reading location - IP/workstation name: [email or web address]
[2020-03-30 10:16] LABS: ABSOLUTE BASOPHILS # (AUTO) 0.1 10^3/uL (0.0-0.2); ABSOLUTE EOSINOPHILS # (AUTO) 0.1 10^3/uL (0.0-0.6); ABSOLUTE LYMPHOCYTES (AUTO) 0.7 10^3/uL (0.5-4.7); ABSOLUTE NEUT (AUTO) 11.5 10^3/uL (1.7-8.2); BASOPHILS % (AUTO) 0.6 % (0-2); EOSINOPHILS % (AUTO) 0.5 % (0-6); HEMATOCRIT 32.7 % (36.0-47.0); LYMPHOCYTES % (AUTO) 5.5 % (13-45); MEAN CORPUSCULAR HEMOGLOBIN 21.1 pg (27.0-33.4); MEAN CORPUSCULAR HGB CONC 30.4 g/dL (32.0-36.0); MEAN CORPUSCULAR VOLUME 69 fl (80-97); MONOCYTES % (AUTO) 7.7 % (3-13); PLATELET COUNT 228 10^3/uL (150-450); RED BLOOD COUNT 4.72 10^6/uL (3.72-5.28); SEGMENTED NEUTROPHILS % (AUTO) 85.7 % (42-78); TOTAL CELLS COUNTED % (AUTO) 100 %; WHITE BLOOD COUNT 13.5 10^3/uL (4.0-10.5)
[2020-03-30 10:35] LABS: ANION GAP 5 (5-19); BLOOD UREA NITROGEN 11 mg/dL (7-20); CALCIUM 9.3 mg/dL (8.4-10.2); CARBON DIOXIDE 24 mmol/L (22-30); CHLORIDE 104 mmol/L (98-107); GLUCOSE 87 mg/dL (75-110); POTASSIUM 4.5 mmol/L (3.6-5.0)
[2020-03-30] MEDS ORDERED: HYDROCODONE/ACETAMINOPHEN 5-325 MG TABLET PO ONE (11:24)
[2020-03-30] MEDS ORDERED: VANCOMYCIN HCL INJ 1000 MG VIAL IV ONE (11:57)
--- NOTE | 2020-03-30 13:20 | RADIOLOGY REPORT (SQ) ---
EXAM DESCRIPTION: CT LEFT LOWER EXTREMITY WITH IMAGES COMPLETED DATE/TIME: 03/30/2020 12:37 pm REASON FOR STUDY: left knee cellulitis, difficulty bending joint COMPARISON: AP, oblique, lateral views of the left knee from 03/30/2020. TECHNIQUE: Sequential CT images of the left knee were obtained after the intravenous injection of 50 mL of Omnipaque 350 contrast. Coronal and sagittal reformats are reconstructed from the axial image s. All CT scanners at this facility use dose modulation, iterative reconstruction, and/or weight based d osing when appropriate to reduce radiation dose to as low as reasonably achievable (ALARA). [facility]: Dose Right [facility]: CareDose [facility]: Dose Right [facility]: Teradose 4D [facility]: MediaXstream RADIATION DOSE: CT Rad equipment meets quality standard of care and radiation dose reduction techniq ues were employed. CTDIvol: 4.1 mGy. DLP: 143 mGy-cm. LIMITATIONS: None. FINDINGS: There is prepatellar subcutaneous edema and dermal thickening. There is no circumscribed subcutaneous fluid collection. There is re- demonstration of an osseous excrescence that projects from the metaphysis of the proxima l fibula that could represent an osteochondromata. There is no acute fracture, periosteal reaction o r osseous erosion. There is no joint effusion or dislocation. The quadriceps and patellar tendon si lhouettes are intact. There is no abnormality of the popliteal fossa. IMPRESSION: Pre-patella subcutaneous edema and dermal thickening without an associated osseous abnor mality or a circumscribed subcutaneous fluid collection. TECHNICAL DOCUMENTATION: JOB ID: [id number] Quality ID # [id number]: Final reports with documentation of one or more dose reduction techniques (e.g., Au tomated exposure control, adjustment of the mA and/or kV according to patient size, use of iterative reconstruction technique) 2010 [employer]- All Rights Reserved Reading location - IP/workstation name: [email or web address]
[2020-03-30] MEDS ORDERED: NORMAL SALINE 1000 ML 1,000 ML IV PRN (13:56)
[2020-03-30] MEDS ORDERED: ONDANSETRON HCL INJ/PF 4 MG/2 ML SDV IV PRN (13:56)
[2020-03-30] MEDS ORDERED: ACETAMINOPHEN 325 MG TABLET PO PRN ×2 (13:56→20:00)
[2020-03-30] MEDS ORDERED: PIPERACILLIN/TAZOBACTAM 3.375 GM VIAL IV SCH (14:00)
[2020-03-30] MEDS ORDERED: ALPRAZOLAM 0.5 MG TABLET PO PRN (14:00)
[2020-03-30] MEDS ORDERED: CLINDAMYCIN 600 MG/D5W RTU 600 MG/50 ML RTUPB IV SCH (14:00)
[2020-03-30] MEDS ORDERED: LORAZEPAM INJ 2 MG/1 ML VIAL IV PRN (14:02)
--- NOTE | 2020-03-30 14:13 | PDOC H&P ---
History of Present Illness Admission Date/PCP: ARTIE CHIU MD Patient complains of: Came with complaints of fever for 3 days associated with redness and swelling around the left knee. History of Present Illness: MARIO MILLS is a 39 year old female with history of chronic smoking, anxiety disorder came to the emergency room with complaints of a fever for the last 3 days associated with redness and swelling around left knee. She Sye pustule- like lesion 2 days ago and is just started draining pussy material. Fever of 102 at home. Decided to came to the emergency room for further evaluation. Denies any trauma denies any IV drug use. Never had history of MRSA. Denies any shortness of breath or chest pains only complaint is for associated with extreme pain swelling or redness around the left knee. Patient is a chronic smoker smokes close to 1 pack/day. Past Medical History Cardiac Medical History: Reports: None Pulmonary Medical History: Reports: None EENT Medical History: Reports: None Neurological Medical History: Reports: None Endocrine Medical History: Reports: None Renal/ Medical History: Reports: None Malignancy Medical History: Reports: None GI Medical History: Reports: None Skin Medical History: Reports: None Psychiatric Medical History: Reports: None Traumatic Medical History: Reports: None Infectious Medical History: Reports: None Past Surgical History Past Surgical History: Reports: Section - x 4, Orthopedic Surgery - left ankle Social History Lives with: Family Smoking Status: Current Every Day Smoker Electronic Cigarette use?: No Frequency of Alcohol Use: Occasional Hx Recreational Drug Use: No Hx Prescription Drug Abuse: No - Advance Directive Resuscitation Status: Full Code Family History Family History: Reviewed & Not Pertinent Parental Family History Reviewed: Yes - Family history of hypertension Children Family History Reviewed: Yes Sibling(s) Family History Reviewed.: Yes Medication/Allergy Home Medications: Alprazolam 1 mg PO BIDP PRN 03/30/20 Allergies/Adverse Reactions: No Known Allergies Allergy (Verified 02/01/20 03:15) Review of Systems Constitutional: PRESENT: fever(s). ABSENT: fatigue, headache(s), night sweats, weakness Eyes: ABSENT: visual disturbances Ears: ABSENT: hearing changes Nose, Mouth, and Throat: ABSENT: sore throat Cardiovascular: ABSENT: dyspnea on exertion, edema Respiratory: ABSENT: dyspnea Gastrointestinal: ABSENT: constipation, diarrhea Genitourinary: ABSENT: hematuria Musculoskeletal: ABSENT: joint swelling Integumentary: ABSENT: rash Neurological: ABSENT: abnormal gait, abnormal speech, confusion, dizziness, focal weakness, syncope Psychiatric: PRESENT: anxiety Physical Exam Vital Signs: Temp Pulse Resp BP Pulse Ox 98.4 F 106 H 16 140/79 H 99 03/30/20 07:50 03/30/20 07:50 03/30/20 07:50 03/30/20 07:50 03/30/20 07:50 Intake & Output 03/29/20 03/30/20 03/31/20 06:59 06:59 06:59 Intake Total 50 Balance 50 Weight 56.2 kg General appearance: PRESENT: mild distress, well-developed Head exam: PRESENT: atraumatic Eye exam: PRESENT: PERRLA Teeth exam: PRESENT: poor dentation Neck exam: ABSENT: carotid bruit, JVD, lymphadenopathy, thyromegaly Respiratory exam: PRESENT: decreased breath sounds Cardiovascular exam: PRESENT: tachycardia GI/Abdominal exam: PRESENT: normal bowel sounds, soft. ABSENT: distended, guarding, mass, organolmegaly, rebound, tenderness Rectal exam: PRESENT: deferred Extremities exam: PRESENT: other - Extensive erythema redness around the left knee extending up to the mid thigh. Small opening is present in front of the patella. Neurological exam: PRESENT: alert, awake, oriented to person, oriented to place, oriented to time, oriented to situation, CN II-XII grossly intact. ABSENT: motor sensory deficit Psychiatric exam: PRESENT: appropriate affect, normal mood. ABSENT: homicidal ideation, suicidal ideation Results Laboratory Results: 03/30/20 10:03 03/30/20 10:03 03/30/20 03/30/20 10:03 10:03 WBC 13.5 H RBC 4.72 Hgb 10.0 L Hct 32.7 L MCV 69 L MCH 21.1 L MCHC 30.4 L RDW 19.0 H Plt Count 228 Seg Neutrophils % 85.7 H Sodium 133.0 L Potassium 4.5 Chloride 104 Carbon Dioxide 24 Anion Gap 5 BUN 11 Creatinine 0.48 L Est GFR ( Amer) > 60 Glucose 87 Calcium 9.3 Impressions: Knee X-Ray 03/30/20 08:47 IMPRESSION: 1. No acute osseous abnormality of the left knee. 2. Osseous excrescence that projects from the metaphysis of the proximal fibula could represent an osteochondroma. Lower Extremity CT 03/30/20 11:59 IMPRESSION: Pre-patella subcutaneous edema and dermal thickening without an associated osseous abnormality or a circumscribed subcutaneous fluid collection. Assessment and Plan - Diagnosis (1) Left leg cellulitis Is this a current diagnosis for this admission?: Yes Plan: 03/30/2020-patient is going to be admitted to medical floor as an inpatient. Wound cultures, blood cultures are requested. Started on IV clindamycin and IV Zosyn. GI prophylaxis DVT prophylaxis initiated. Left knee x-ray and left lower leg CT is negative for abscess. To start on IV morphine 2 mg every 4 hours as needed, Ativan 1 mg every 6 as needed for anxiety. To repeat the labs tomorrow. to Check lactic acid levels. (2) Tobacco abuse Is this a current diagnosis for this admission?: No Plan: 03/30/2020-patient has history of chronic smoking presently currently day smoker. Smoking counseling was provided for more than 20 minutes and placed her on nicotine patches.
[2020-03-30] MEDS: PIPERACILLIN SODIUM/TAZOBACTAM 3.375 GM in NORMAL SALINE 100 ML IV SCH ×2 (14:45→21:41)
[2020-03-30] MEDS ORDERED: NICOTINE 21 MG/24 HR PATCH.TD24 TD ONE (15:00)
--- NOTE | 2020-03-30 15:07 | RADIOLOGY REPORT (SQ) ---
EXAM DESCRIPTION: CHEST 2 VIEWS IMAGES COMPLETED DATE/TIME: 03/30/2020 2:48 pm REASON FOR STUDY: fever COMPARISON: PA and lateral views of the chest from 01/24/2019. EXAM PARAMETERS: NUMBER OF VIEWS: Two views. TECHNIQUE: PA and lateral views of the chest were obtained. RADIATION DOSE: NA LIMITATIONS: None. FINDINGS: LUNGS AND PLEURA: No consolidation, pleural effusion or pneumothorax. MEDIASTINUM AND HILAR STRUCTURES: No mediastinal or hilar contour abnormality. HEART AND VASCULAR STRUCTURES: The cardiac silhouette and pulmonary vasculature are within normal baugh its. BONES: No acute findings. HARDWARE: None in the chest. OTHER: No other finding. IMPRESSION: No acute cardiopulmonary process. TECHNICAL DOCUMENTATION: JOB ID: [id number] 2010 [employer]- All Rights Reserved Reading location - IP/workstation name: [email or web address]
[2020-03-30] MEDS: MORPHINE SULFATE 10 MG/ML INJ IV PRN (15:24)
[2020-03-30] MEDS: HEPARIN SOD (PORCINE) 5,000 UNIT/ML 1 ML VIAL SUBCUT SCH ×2 (15:24→21:39)
[2020-03-30] MEDS: CLINDAMYCIN 600 MG/D5W RTU 600 MG/50 ML RTUPB IV SCH ×2 (15:25→22:21)
[2020-03-30 16:49] LABS: URINE AMPHETAMINES SCREEN NEGATIVE; URINE BARBITURATES SCREEN NEGATIVE; URINE COCAINE SCREEN NEGATIVE; URINE MARIJUANA (THC) SCREEN NEGATIVE; URINE METHADONE SCREEN NEGATIVE
[2020-03-30 16:56] LABS: URINE PHENCYCLIDINE SCREEN NEGATIVE
[2020-03-30 17:01] LABS: URINE BENZODIAZEPINES SCREEN UNCONFIRMED POSITIVE
[2020-03-31] MEDS: MORPHINE SULFATE 10 MG/ML INJ IV PRN ×2 (01:30→09:12)
[2020-03-31] MEDS: PIPERACILLIN SODIUM/TAZOBACTAM 3.375 GM in NORMAL SALINE 100 ML IV SCH (05:09)
[2020-03-31] MEDS: HEPARIN SOD (PORCINE) 5,000 UNIT/ML 1 ML VIAL SUBCUT SCH (05:10)
[2020-03-31] MEDS ORDERED: PANTOPRAZOLE SODIUM 40 MG TABLET.DR PO SCH (06:00)
[2020-03-31] MEDS: CLINDAMYCIN 600 MG/D5W RTU 600 MG/50 ML RTUPB IV SCH (06:37)
[2020-03-31 07:39] LABS: ABSOLUTE EOSINOPHILS # (AUTO) 0.1 10^3/uL (0.0-0.6); ABSOLUTE LYMPHOCYTES (AUTO) 0.8 10^3/uL (0.5-4.7); ABSOLUTE MONOCYTES (AUTO) 0.7 10^3/uL (0.1-1.4); ABSOLUTE NEUT (AUTO) 4.7 10^3/uL (1.7-8.2); BASOPHILS % (AUTO) 0.4 % (0-2); EOSINOPHILS % (AUTO) 2.1 % (0-6); HEMATOCRIT 25.4 % (36.0-47.0); LYMPHOCYTES % (AUTO) 12.5 % (13-45); MEAN CORPUSCULAR HEMOGLOBIN 21.6 pg (27.0-33.4); MEAN CORPUSCULAR HGB CONC 30.9 g/dL (32.0-36.0); MEAN CORPUSCULAR VOLUME 70 fl (80-97); MONOCYTES % (AUTO) 11.1 % (3-13); PLATELET COUNT 162 10^3/uL (150-450); RED BLOOD COUNT 3.63 10^6/uL (3.72-5.28); RED CELL DISTRIBUTION WIDTH 19.6 % (11.5-14.0); SEGMENTED NEUTROPHILS % (AUTO) 73.9 % (42-78); TOTAL CELLS COUNTED % (AUTO) 100 %; WHITE BLOOD COUNT 6.4 10^3/uL (4.0-10.5)
[2020-03-31 07:46] LABS: ALBUMIN 2.8 g/dL (3.5-5.0); ALKALINE PHOSPHATASE 72 U/L (38-126); ASPARTATE AMINO TRANSFERASE 24 U/L (14-36); BILIRUBIN,TOTAL 0.5 mg/dL (0.2-1.3); BLOOD UREA NITROGEN 10 mg/dL (7-20); CALCIUM 8.3 mg/dL (8.4-10.2); GLUCOSE 99 mg/dL (75-110); POTASSIUM 4.1 mmol/L (3.6-5.0); TOTAL PROTEIN 5.5 g/dL (6.3-8.2); TRIGLYCERIDES 143 mg/dL (<150)
[2020-03-31 07:51] LABS: CARBON DIOXIDE 24 mmol/L (22-30); CHLORIDE 107 mmol/L (98-107)
[2020-03-31 07:57] LABS: DIRECT LDL 65 mg/dL (<100)
[2020-03-31 08:01] LABS: ANION GAP 4 (5-19)
[2020-03-31 08:15] VITALS: BP 109/56
[2020-03-31 08:32] LABS: HEMOGLOBIN 7.8 g/dL (12.0-15.5)
--- NOTE | 2020-03-31 10:12 | PDOC DISCHARGE SUMMARY ---
Impression - Admit/DC Date/PCP Admission Date/Primary Care Provider: 03/30/20 14:03 ARTIE CHIU MD Discharge Date: 03/31/20 - Additional Information Resuscitation Status: Full Code Discharge Diet: Regular Discharge Activity: Activity As Tolerated Referrals: ARTIE CHIU MD [Primary Care Provider] - Follow up as needed Prescriptions: Sulfamethoxazole/Trimethoprim [Bactrim Ds Tablet] 1 each PO Q12 10 Days #20 tablet Clindamycin HCl 300 mg PO Q6 10 Days #40 capsule Hydrocodone/Acetaminophen [Tovey 5-325 mg Tablet] 1 tab PO Q8 PRN #4 tablet PRN Reason: For Pain Home Medications: Alprazolam 1 mg PO BIDP PRN 03/30/20 Acetaminophen [Tylenol 325 mg Tablet] 650 mg PO Q4HP PRN tablet 03/31/20 Clindamycin HCl 300 mg PO Q6 10 Days #40 capsule 03/31/20 Hydrocodone/Acetaminophen [Tovey 5-325 mg Tablet] 1 tab PO Q8 PRN #4 tablet 03/31/20 Sulfamethoxazole/Trimethoprim [Bactrim Ds Tablet] 1 each PO Q12 10 Days #20 tablet 03/31/20 History of Present Illiness History of Present Illness: MARIO MILLS is a 39 year old femalewith history of chronic smoking, anxiety disorder came to the emergency room with complaints of a fever for the last 3 days associated with redness and swelling around left knee. She Sye pustule- like lesion 2 days ago and is just started draining pussy material. Fever of 102 at home. Decided to came to the emergency room for further evaluation. Denies any trauma denies any IV drug use. Never had history of MRSA. Denies any shortness of breath or chest pains only complaint is for associated with extreme pain swelling or redness around the left knee. Patient is a chronic smoker smokes close to 1 pack/day. Hospital Course Hospital Course: Unremarkable hospital course. With aggressive antibiotic therapy the patient exhibited significant decrease in erythema. She had decreasing pain. She has less swelling. She still has a small pustule on the knee that is not actively draining. Her white blood cell count has normalized. She was found to be anem ic this morning. I think it is more delusional as well as an ongoing chronic iron deficiency anemia as exhibited by her significantly low MCV and possible contribution from her vegetarian diet. She was in agreement with discharge. We discussed supplementing iron and following up with Dr. Chiu for further anemia work-up and to recheck her CBC. Physical Exam Vital Signs: Temp Pulse Resp BP Pulse Ox 97.7 F 74 20 109/56 L 100 03/31/20 08:00 03/31/20 08:00 03/31/20 08:00 03/31/20 08:00 03/31/20 08:00 Intake & Output 03/30/20 03/31/20 04/01/20 06:59 06:59 06:59 Intake Total 1250 Balance 1250 Weight 53.5 kg General appearance: PRESENT: no acute distress, cooperative Respiratory exam: PRESENT: clear to auscultation sara, symmetrical, unlabored. ABSENT: rales, rhonchi, tachypnea, wheezes Cardiovascular exam: PRESENT: RRR, +S1, +S2. ABSENT: diastolic murmur, irregular rhythm, systolic murmur GI/Abdominal exam: PRESENT: normal bowel sounds, soft. ABSENT: tenderness Extremities exam: PRESENT: other - Small pustule left knee. Per patient significantly decreased erythema. Musculoskeletal exam: PRESENT: ambulatory Neurological exam: PRESENT: alert, awake, oriented to person, oriented to place, oriented to time, oriented to situation, CN II-XII grossly intact. ABSENT: altered, motor sensory deficit Psychiatric exam: ABSENT: agitated, anxious Skin exam: PRESENT: erythema, other - Pustule Results Laboratory Results: WBC 6.4 10^3/uL (4.0-10.5) 03/31/20 07:16 RBC 3.63 10^6/uL (3.72-5.28) L 03/31/20 07:16 Hgb 7.8 g/dL (12.0-15.5) L D 03/31/20 07:16 Hct 25.4 % (36.0-47.0) L 03/31/20 07:16 MCV 70 fl (80-97) L 03/31/20 07:16 MCH 21.6 pg (27.0-33.4) L 03/31/20 07:16 MCHC 30.9 g/dL (32.0-36.0) L 03/31/20 07:16 RDW 19.6 % (11.5-14.0) H 03/31/20 07:16 Plt Count 162 10^3/uL (150-450) 03/31/20 07:16 Lymph % (Auto) 12.5 % (13-45) L 03/31/20 07:16 Rowan % (Auto) 11.1 % (3-13) 03/31/20 07:16 Eos % (Auto) 2.1 % (0-6) 03/31/20 07:16 Baso % (Auto) 0.4 % (0-2) 03/31/20 07:16 Absolute Neuts (auto) 4.7 10^3/uL (1.7-8.2) 03/31/20 07:16 Absolute Lymphs (auto) 0.8 10^3/uL (0.5-4.7) 03/31/20 07:16 Absolute Monos (auto) 0.7 10^3/uL (0.1-1.4) 03/31/20 07:16 Absolute Eos (auto) 0.1 10^3/uL (0.0-0.6) 03/31/20 07:16 Absolute Basos (auto) 0.0 10^3/uL (0.0-0.2) 03/31/20 07:16 Seg Neutrophils % 73.9 % (42-78) 03/31/20 07:16 Sodium 135.0 mmol/L (137-145) L 03/31/20 07:16 Potassium 4.1 mmol/L (3.6-5.0) 03/31/20 07:16 Chloride 107 mmol/L (98-107) 03/31/20 07:16 Carbon Dioxide 24 mmol/L (22-30) 03/31/20 07:16 Anion Gap 4 (5-19) L 03/31/20 07:16 BUN 10 mg/dL (7-20) 03/31/20 07:16 Creatinine 0.59 mg/dL (0.52-1.25) 03/31/20 07:16 Est GFR ( Amer) > 60 (>60) 03/31/20 07:16 Est GFR (MDRD) Non-Af > 60 (>60) 03/31/20 07:16 Glucose 99 mg/dL (75-110) 03/31/20 07:16 Hemoglobin A1c % 5.5 % (4.7-6.0) 03/31/20 07:16 Lactic Acid 0.8 mmol/L (0.7-2.1) 03/30/20 15:07 Calcium 8.3 mg/dL (8.4-10.2) L 03/31/20 07:16 Magnesium 2.0 mg/dL (1.6-2.3) 03/31/20 07:16 Total Bilirubin 0.5 mg/dL (0.2-1.3) 03/31/20 07:16 Direct Bilirubin 0.0 mg/dL (0.0-0.4) 03/31/20 07:16 Neonat Total Bilirubin Not Reportable 03/31/20 07:16 Neonat Direct Bilirubin Not Reportable 03/31/20 07:16 Neonat Indirect Bili Not Reportable 03/31/20 07:16 AST 24 U/L (14-36) 03/31/20 07:16 ALT 13 U/L (<35) 03/31/20 07:16 Alkaline Phosphatase 72 U/L (38-126) 03/31/20 07:16 Total Protein 5.5 g/dL (6.3-8.2) L 03/31/20 07:16 Albumin 2.8 g/dL (3.5-5.0) L 03/31/20 07:16 Triglycerides 143 mg/dL (<150) 03/31/20 07:16 Cholesterol 139.60 mg/dL (0-200) 03/31/20 07:16 LDL Cholesterol Direct 65 mg/dL (<100) 03/31/20 07:16 VLDL Cholesterol 29.0 mg/dL (10-31) 03/31/20 07:16 HDL Cholesterol 43 mg/dL (>40) 03/31/20 07:16 TSH 3.00 uIU/mL (0.47-4.68) 03/31/20 07:16 Urine Opiates Screen UNCONFIRMED POSITIVE 03/30/20 15:55 Urine Methadone Screen NEGATIVE 03/30/20 15:55 Ur Barbiturates Screen NEGATIVE 03/30/20 15:55 Ur Phencyclidine Scrn NEGATIVE 03/30/20 15:55 Ur Amphetamines Screen NEGATIVE 03/30/20 15:55 U Benzodiazepines Scrn UNCONFIRMED POSITIVE 03/30/20 15:55 Urine Cocaine Screen NEGATIVE 03/30/20 15:55 U Marijuana (THC) Screen NEGATIVE 03/30/20 15:55 Impressions: Chest X-Ray 03/30/20 00:00 IMPRESSION: No acute cardiopulmonary process. Knee X-Ray 03/30/20 08:47 IMPRESSION: 1. No acute osseous abnormality of the left knee. 2. Osseous excrescence that projects from the metaphysis of the proximal fibula could represent an osteochondroma. Lower Extremity CT 03/30/20 11:59 IMPRESSION: Pre-patella subcutaneous edema and dermal thickening without an associated osseous abnormality or a circumscribed subcutaneous fluid collection. Plan Health Concerns: Staph infection left knee. Final identification pending. Possible MRSA. Severe iron deficiency anemia. Will need to modify vegetarian diet to include more iron. Needs to follow-up with Dr. Chiu to repeat CBC and possible further anemia work-up. Plan of Treatment: Complete dual antibiotic therapy of clindamycin and Bactrim DS. Follow-up with Dr. Chiu for repeat CBC and to assess left knee. Goals: Complete resolution of infection and further investigation of anemia. Time Spent: Greater than 30 Minutes Stroke Is this a Stroke Patient?: No Acute Heart Failure - Is this a Heart Failure Patient?: No
--- NOTE | 2020-04-01 08:09 | Progress Note ---
Provider Note Provider Note: 04/01/2020 Left a message that the phone number listed in the patient's demographics to let her know that the culture results came back as methicillin-resistant staph aureus. There was no answer so I left a generic message. She was discharged on clindamycin and Bactrim and this should easily cover the infection.
== END 2020-03-31 11:20 | disposition home or self-care (01) | DRG 603 ==
LOC: ER 07:46 → EH 14:03 → 2N 16:29
PROVIDERS: ADMIT Internal Medicine; ATTEND Hospitalist
DX: L03.116 Cellulitis of left lower limb (principal); B95.62 Methicillin resistant Staphylococcus aureus infection as the cause of diseases classified elsewhere; F41.9 Anxiety disorder, unspecified; F17.210 Nicotine dependence, cigarettes, uncomplicated
CPT/HCPCS: 36415; 71046; 80048; 80053; 80061; 80307; 83036; 83605; 83735; 84443; 85025; 87040; 87070; 87077; 87186; 87205; 96365; 96375; 99285; J1644; J1885; J2270; J2543; J3370; J3490; J7050

== ENCOUNTER 2020-04-16 11:40 | Emergency (ER) | payer SELFPAY ==
--- NOTE | 2020-04-16 11:57 | ER Document Report ---
ED Medical Screen (RME) - General Chief Complaint: Leg Pain Stated Complaint: LEG PAIN Time Seen by Provider: 04/16/20 11:54 Primary Care Provider: ARTIE CHIU MD [Primary Care Provider] - Follow up as needed Notes: HPI: 39-year-old female presenting with lower back pain on the right side with radiation down the right leg. No incontinence of urine or bowel. States symptoms been ongoing for months. States she is seen pain management at her primary care provider who did a joint injection as well as putting her on steroids without resolution of her symptoms. Patient states that given the continuation of her symptoms her primary care provider told her to come to the emergency department today for further evaluation. PHYSICAL EXAMINATION: Limited exam in triage, mild tenderness across the lower lumbar region of the back on the right. No saddle anesthesia on exam I have greeted and performed a rapid initial assessment of this patient. A comprehensive ED assessment and evaluation of the patient, analysis of test results and completion of medical decision making process will be conducted by an additional ED providers. TRAVEL OUTSIDE OF THE [place] IN LAST 30 DAYS: No - Related Data Allergies/Adverse Reactions: No Known Allergies Allergy (Verified 02/01/20 03:15) Past Medical History Renal/ Medical History: Denies: Hx Peritoneal Dialysis Musculoskeltal Medical History: Reports Hx Musculoskeletal Deformity, Reports Hx Musculoskeletal Trauma Psychiatric Medical History: Denies: Hx Depression Past Surgical History: Reports: Hx Section - x 4, Hx Orthopedic Surgery - left ankle - Immunizations Immunizations up to date: Yes Physical Exam - Vital signs Vitals: Temp Pulse Resp BP Pulse Ox 98.9 F 65 18 138/91 H 100 04/16/20 11:46 04/16/20 11:46 04/16/20 11:46 04/16/20 11:46 04/16/20 11:46 Course - Vital Signs Vital signs: Temp Pulse Resp BP Pulse Ox 98.9 F 65 18 138/91 H 100 04/16/20 11:46 04/16/20 11:46 04/16/20 11:46 04/16/20 11:46 04/16/20 11:46 Doctor's Discharge - Discharge Referrals: ARTIE CHIU MD [Primary Care Provider] - Follow up as needed
--- NOTE | 2020-04-16 12:18 | RADIOLOGY REPORT (SQ) ---
EXAM DESCRIPTION: L SPINE WHOLE IMAGES COMPLETED DATE/TIME: 04/16/2020 12:08 pm REASON FOR STUDY: sciatic sx right COMPARISON: None. NUMBER OF VIEWS: Five views including obliques. TECHNIQUE: AP, lateral, oblique, and sacral radiographic images acquired of the lumbar spine. LIMITATIONS: None. FINDINGS: MINERALIZATION: Normal. SEGMENTATION: Normal. No transitional anatomy. ALIGNMENT: Normal. VERTEBRAE: Maintained height. No fracture or worrisome bone lesion. DISCS: There is mild disc narrowing at L4-5 and L5-S1. POSTERIOR ELEMENTS: Mild hypertrophic facet changes at L5-S1. HARDWARE: None in the spine. PARASPINAL SOFT TISSUES: Normal. PELVIS: Intact as visualized. No fractures or worrisome bone lesions. SI joints intact. OTHER: No other significant finding. IMPRESSION: Mild degenerative disc disease and facet arthropathy. TECHNICAL DOCUMENTATION: JOB ID: [id number] 2010 [employer]- All Rights Reserved Reading location - IP/workstation name: [email or web address]
--- NOTE | 2020-04-16 12:25 | ER Document Report ---
ED General - General Chief Complaint: Back Pain Stated Complaint: LEG PAIN Time Seen by Provider: 04/16/20 11:54 Primary Care Provider: ARTIE CHIU MD [Primary Care Provider] - Follow up as needed Notes: Patient presents with several weeks of low back pain rating of the right buttock and leg with numbness coming up the right foot to the medial calf. Is been constant it is worse with movement. She is had SI joint injections multiple outpatient drugs but has not had physical therapy or an MRI. She is scheduled have MRI in 2 weeks. No IDU no fevers no saddle anesthesia incontinence of bowel or bladder. TRAVEL OUTSIDE OF THE [place] IN LAST 30 DAYS: No - Related Data Allergies/Adverse Reactions: No Known Allergies Allergy (Verified 02/01/20 03:15) Past Medical History - General Information source: Patient - Social History Smoking Status: Current Every Day Smoker Frequency of alcohol use: Occasional Family History: Reviewed & Not Pertinent Renal/ Medical History: Denies: Hx Peritoneal Dialysis Musculoskeletal Medical History: Reports Hx Musculoskeletal Deformity, Reports Hx Musculoskeletal Trauma Psychiatric Medical History: Denies: Hx Depression Past Surgical History: Reports: Hx Section - x 4, Hx Orthopedic Surgery - left ankle - Immunizations Immunizations up to date: Yes Review of Systems - Review of Systems Notes: REVIEW OF SYSTEMS GEN: Denies fever, chills, weight loss ENT: Denies sore throat, nasal discharge, ear pain EYES: Denies blurry vision, eye pain, discharge CV: Denies chest pain, palpitations, edema RESP: Denies cough, shortness of breath, wheezing GI: Denies abdominal pain, nausea, vomiting, diarrhea MSK: Back pain buttock pain, SKIN: Denies rash, skin lesions LYMPH: Denies swollen glands/lymph nodes NEURO: Right leg paresthesia PSYCH: Denies depression, suicidal or homicidal ideation PHYSICAL EXAMINATION General: No acute distress, well-nourished Head: Atraumatic, normocephalic ENT: Mouth normal, oropharynx moist, no exudates or tonsillar enlargement Eyes: Conjunctiva normal, pupils equal, lids normal Neck: No JVD, supple, no guarding CVS: Normal rate, regular rhythm, no murmurs Resp: No resp distress, equal and normal breath sounds bilaterally GI: Nondistended, soft, no tenderness to palpation, no rebound or guarding Ext: No deformities, no edema, normal range of motion in upper and lower ext Back: No CVA or midline TTP Skin: No rash, warm Lymphatic: No lymphadeopathy noted Neuro: Awake, alert. Face symmetric. GCS 15. 5 strength in both lower extremities including ankle plantar dorsiflexion. Normal reflexes patellar and Achilles bilaterally. Normal sensation in both legs. Physical Exam - Vital signs Vitals: Temp Pulse Resp BP Pulse Ox 98.9 F 65 18 138/91 H 100 04/16/20 11:46 04/16/20 11:46 04/16/20 11:46 04/16/20 11:46 04/16/20 11:46 Course - Re-evaluation Re-evalutation: 04/16/20 15:55 Radiculopathy, subacute without concern for cauda equina or risk factors for spinal dural abscess No indication indicated based on history and physical Is getting an MRI in the future and I think this is reasonable. Will prescribe her prednisone and Lidoderm and we had a lengthy discussion about MRI needing to be needed but not today and the fact that she has not tried physical therapy. She is eager to have back surgery but I instructed her that this is not a light decision and needs to be carefully considered after and with multiple specialists, which she already is in contact with. I have discussed with the patient there likely diagnosis, aftercare plan, follow-up plans and my usual and customary return precautions. They verbalized understanding of this. - Vital Signs Vital signs: Temp Pulse Resp BP Pulse Ox 98.5 F 59 L 18 127/78 H 100 04/16/20 13:10 04/16/20 13:10 04/16/20 11:46 04/16/20 13:10 04/16/20 13:10 Discharge - Discharge Clinical Impression: Low back pain with right-sided sciatica Qualifiers: Chronicity: acute Back pain laterality: right Qualified Code(s): M54.41 - Lumbago with sciatica, right side Condition: Good Disposition: HOME, SELF-CARE Instructions: Low Back Pain ([facility]) Additional Instructions: Follow-up for your scheduled MRI Prescriptions: Prednisone [Deltasone 20 mg Tablet] 3 tab PO DAILY 5 Days tablet Gabapentin 300 mg PO BID #30 capsule Lidocaine [Lidoderm 5% (700 mg) Transdermal Patch] 1 patch TP DAILY #10 adh..patch Referrals: ARTIE CHIU MD [Primary Care Provider] - Follow up as needed
[2020-04-16 13:11] VITALS: BP 127/78
== END 2020-04-16 13:11 | disposition home or self-care (01) ==
LOC: ER 11:40
DX: M54.41 Lumbago with sciatica, right side (principal); F17.200 Nicotine dependence, unspecified, uncomplicated
CPT/HCPCS: 72110; 99283

== ENCOUNTER → 2020-06-04 | Outpatient (CLI) | payer OTHER ==
--- NOTE | 2020-06-04 11:41 | RADIOLOGY REPORT (SQ) ---
EXAM DESCRIPTION: MRI LUMBAR SPINE WITHOUT IMAGES COMPLETED DATE/TIME: 06/04/2020 11:31 am REASON FOR STUDY: NUMBNESS RT LOWER ESTREMITY AND TOES (R20.2) R20.2 PARESTHESIA OF SKIN COMPARISON: None. TECHNIQUE: Sagittal and Axial imaging includes T1, T2, STIR and gradient echo sequences. Coronal T2/ HASTE imaging. LIMITATIONS: None. FINDINGS: VISUALIZED UPPER ABDOMEN: Limited evaluation. No acute or suspicious findings suggested. SEGMENTATION: No transitional anatomy. The lowest well-developed disc space is labeled L5-S1. ALIGNMENT: Anatomic. VERTEBRAE: Intact. BONE MARROW: Normal. No marrow replacement or reactive changes. DISC SIGNAL: Desiccation multiple levels. POSTERIOR ELEMENTS: Generally intact. No pars defect evident. HARDWARE: None in the spine. CORD AND CONUS: Normal in size and signal intensity. Conus at the appropriate level. SOFT TISSUES: No aortic aneurysm seen. No bulky retroperitoneal adenopathy or mass. No paraspinal mas s or fluid. L1-L2: No significant spinal stenosis or exit foraminal stenosis. L2-L3: Central annular fissure. No significant stenosis. L3-L4: No significant spinal stenosis or exit foraminal stenosis. L4-L5: Central annular fissure. No significant stenosis. Mild facet arthropathy. L5-S1: Right paracentral and downward disc protrusion compressing the transiting right S1 nerve root in the canal. LOWER THORACIC: Incompletely imaged. No stenosis seen. SACRUM: Visualized upper sacrum intact. OTHER: No other significant findings. IMPRESSION: Disc herniation L5-S1 which is compressing the transiting right S1 nerve root. TECHNICAL DOCUMENTATION: JOB ID: [id number] 2010 [employer]- All Rights Reserved Reading location - IP/workstation name: [email or web address]
== END ==
LOC: RAD 10:53
PROVIDERS: ATTEND Family Medicine
DX: M51.27 Other intervertebral disc displacement, lumbosacral region (principal); R20.2 Paresthesia of skin
CPT/HCPCS: 72148